=== PATIENT | female | born 1960 | race Caucasian/White ===

== ENCOUNTER 2020-03-19 10:48 | Outpatient (REF) | payer BC, SELFPAY ==
[2020-03-19 13:09] LABS: Free T4 (Free Thyroxine) 1.35 ng/dL (0.71-1.85); Thyroid Stimulating Hormone 0.07 mIU/mL (0.32-4.0)
[2020-03-31 12:40] LABS: MANUAL DIFF FLAG NO
[2020-03-31 12:45] LABS: Basophils Percent Auto 0.4 % (0-2); Eosinophils Absolute Auto 0.1 X10*3/uL (0.0-0.4); Eosinophils Percent Auto 1.5 % (0-4); Hematocrit 38.9 % (37-47); Hemoglobin 13.1 g/dl (12.0-16.0); Imm Gran Abs Auto 0.01 X10*3/uL (0.00-0.03); Imm Gran Pct Auto 0.2 % (0.0-0.4); Lymphocytes Absolute Auto 1.3 X10*3/uL (1.2-4.9); Lymphocytes Percent Auto 26.8 % (20-40); Mean Corpuscular HGB Conc 33.7 g/dl (31.0-35.0); Mean Corpuscular Hemoglobin 32.7 pg (27.0-33.0); Monocytes Absolute Auto 0.4 X10*3/uL (0.1-1.2); Monocytes Percent Auto 8.4 % (2-11); Neutrophils Percent Auto 62.7 % (45-73); Platelet Count 210 X10*3/uL (160-400); Red Blood Count 4.01 X10*6/uL (4.20-5.50); Red Cell Distribution Width 11.7 % (11.0-16.0); White Blood Count 4.8 X10*3/uL (4.8-10.8)
[2020-03-31 13:16] LABS: Alanine Aminotransferase 22 U/L (0-31); Albumin Level 4.7 g/dL (3.5-5.0); Alkaline Phosphatase 57 U/L (39-117); Anion Gap 10 (12-20); Aspartate Amino Transferase 22 U/L (5-31); Bilirubin Total 0.5 mg/dL (0.0-1.0); Blood Urea Nitrogen 18 mg/dL (9-16); C Reactive Protein 0.03 mg/dL (< or = 0.50); Calcium 9.7 mg/dL (8.4-10.2); Carbon Dioxide 31 mmol/L (22-29); Chloride 104 mmol/L (96-108); Estimated Glomerular Filt Rate > 60; Glucose Random 84 mg/dL (60-115); Potassium 4.8 mmol/l (3.3-5.1); Sodium 140 mmol/L (135-145); Total Protein 7.3 g/dL (6.5-8.0)
[2020-03-31 13:31] LABS: Thyroid Stimulating Hormone 0.05 mIU/mL (0.32-4.0)
[2020-03-31 13:48] LABS: Erythrocyte Sedimentation Rate 6 MM/HR (0-20)
[2020-04-05 20:27] LABS: Transglutaminase Ab IgG 5 U/mL; Transglutaminase IgA 1 U/mL
== END 2020-03-19 10:49 | disposition home or self-care (01) ==
LOC: HO.LAB 10:48
PROVIDERS: Internal Medicine Gastroenterology; PCP Internal Medicine; Visit Provider Internal Medicine
DX: E03.9 Hypothyroidism, unspecified (principal)
CPT/HCPCS: 36415; 80053; 83516; 84439; 84443; 85025; 85652; 86140

== ENCOUNTER 2020-03-31 17:12 | Outpatient (REF) | payer BC, SELFPAY ==
[2020-03-31 18:01] LABS: Leukocytes Stool Qualitative NEGATIVE (NEGATIVE)
[2020-04-01 10:12] LABS: CDIFF Ag Negative (Negative); CDIFF Internal ctrl Dots and bkg OK (V); CDiff Toxin Negative (Negative)
[2020-04-05 22:41] LABS: Fecal Fat Qualitative NORMAL (NORMAL)
[2020-04-07 00:06] LABS: Pancreatic Elastase-1 >500 mcg/g
[2020-04-07 20:26] LABS: Calprotectin, Fecal 63 mcg/g
== END 2020-03-31 17:13 | disposition home or self-care (01) ==
LOC: HO.LNP 17:12
PROVIDERS: Visit Provider Internal Medicine Gastroenterology
DX: R19.7 Diarrhea, unspecified (principal)
CPT/HCPCS: 82656; 82705; 83993; 87324; 87329; 87338; 87449; 89055

== ENCOUNTER 2020-10-20 13:51 | Outpatient (REF) | payer BC, SELFPAY ==
[2020-10-21 14:03] LABS: CT PCR NOT DETECTED (Not Detect.); NG PCR NOT DETECTED (Not Detect.)
[2020-10-22 12:23] LABS: BV Int Neg Control Negative (Negative); BV Int Pos Control Positive (Positive)
== END 2020-10-20 13:52 | disposition home or self-care (01) ==
LOC: HO.LAB 13:51
PROVIDERS: Visit Provider Nurse Practitioner Family
DX: Z11.3 Encounter for screening for infections with a predominantly sexual mode of transmission (principal); N89.8 Other specified noninflammatory disorders of vagina
CPT/HCPCS: 87086; 87480; 87491; 87510; 87591; 87660

== ENCOUNTER 2020-10-21 11:12 | Outpatient (REF) | payer BC, SELFPAY | END 2020-10-21 11:13 | disposition home or self-care (01) | LOC: HO.LNP 11:12 | PROVIDERS: Visit Provider Nurse Practitioner Family | DX: Z13.89 Encounter for screening for other disorder (principal) | CPT/HCPCS: 87086; 87480; 87491; 87510; 87591; 87660 ==

== ENCOUNTER 2020-12-21 09:10 | Outpatient (REF) | payer BC, SELFPAY ==
[2020-12-21 10:09] LABS: MANUAL DIFF FLAG NO
[2020-12-21 10:18] LABS: Basophils Percent Auto 0.4 % (0-2); Eosinophils Absolute Auto 0.1 X10*3/uL (0.0-0.4); Eosinophils Percent Auto 2.1 % (0-4); Hematocrit 42.7 % (37-47); Hemoglobin 14.4 g/dl (12.0-16.0); Imm Gran Abs Auto 0.01 X10*3/uL (0.00-0.03); Imm Gran Pct Auto 0.2 % (0.0-0.4); Lymphocytes Absolute Auto 1.5 X10*3/uL (1.2-4.9); Mean Corpuscular HGB Conc 33.7 g/dl (31.0-35.0); Mean Corpuscular Hemoglobin 32.1 pg (27.0-33.0); Mean Corpuscular Volume 95.1 fL (80-98); Mean Platelet Volume 11.2 fL (9.4-12.3); Monocytes Absolute Auto 0.5 X10*3/uL (0.1-1.2); Monocytes Percent Auto 8.9 % (2-11); Neutrophils Percent Auto 58.4 % (45-73); Platelet Count 255 X10*3/uL (160-400); Red Blood Count 4.49 X10*6/uL (4.20-5.50); White Blood Count 5.1 X10*3/uL (4.8-10.8)
[2020-12-21 10:40] LABS: Alanine Aminotransferase 48 U/L (0-31); Albumin Level 4.8 g/dL (3.5-5.0); Alkaline Phosphatase 77 U/L (39-117); Anion Gap 13 (12-20); Aspartate Amino Transferase 33 U/L (5-31); Bilirubin Total 0.5 mg/dL (0.0-1.0); Blood Urea Nitrogen 20 mg/dL (9-16); Calcium 10.4 mg/dL (8.4-10.2); Carbon Dioxide 30 mmol/L (22-29); Chloride 103 mmol/L (96-108); Cholesterol 211 mg/dL; Estimated Glomerular Filt Rate > 60; Glucose Fasting 87 mg/dL (60-99); HDL Cholesterol 80 mg/dL; LDL Cholesterol Calculated 107 mg/dl; Potassium 4.4 mmol/L (3.3-5.1); Sodium 142 mmol/L (135-145); Total Protein 7.6 g/dL (6.5-8.0); Triglycerides 121 mg/dL
[2020-12-21 11:02] LABS: Free T4 (Free Thyroxine) 1.26 ng/dL (0.71-1.85); Thyroid Stimulating Hormone < 0.01 uIU/mL (0.32-4.0); Vitamin D 25-OH Total 40.4 ng/mL (>30)
[2020-12-21 12:17] LABS: Glucose Urine UA NEG (NEG); Leukocyte Esterase Urine 2+ (NEG); Nitrite Urine NEG (NEG); UACC Culture Trigger YES; Urine Blood NEG (NEG); Urine Ketones NEG (NEG); Urine Protein NEG (NEG-TRACE)
[2020-12-21 12:19] LABS: Appearance Urine CLEAR; Color Urine YELLOW
[2020-12-21 13:12] LABS: Bacteria Urine TRACE /LPF; RBC Urine 0-2 /HPF (0); Squamous Epithelial Cell Urine TRACE /LPF
== END 2020-12-21 09:11 | disposition home or self-care (01) ==
LOC: HO.LAB 09:10
PROVIDERS: PCP Internal Medicine; Visit Provider Internal Medicine
DX: Z00.00 Encounter for general adult medical examination without abnormal findings (principal); E03.9 Hypothyroidism, unspecified; E78.5 Hyperlipidemia, unspecified; E55.9 Vitamin D deficiency, unspecified
CPT/HCPCS: 36415; 80053; 80061; 81001; 81003; 82306; 84439; 84443; 85025; 87086; 87147

== ENCOUNTER 2022-01-11 08:57 | Outpatient (REF) | payer BC, SELFPAY ==
[2022-01-11 09:18] LABS: MANUAL DIFF FLAG NO
[2022-01-11 09:50] LABS: Basophils Percent Auto 0.4 % (0-2); Eosinophils Absolute Auto 0.1 X10*3/uL (0.0-0.4); Eosinophils Percent Auto 1.3 % (0-4); Hematocrit 40.8 % (37.0-47.0); Hemoglobin 13.7 g/dl (12.0-16.0); Imm Gran Abs Auto 0.02 X10*3/uL (0.00-0.03); Imm Gran Pct Auto 0.4 % (0.0-0.4); Lymphocytes Absolute Auto 1.3 X10*3/uL (1.2-4.9); Mean Corpuscular HGB Conc 33.6 g/dl (31.0-35.0); Mean Corpuscular Hemoglobin 32.3 pg (27.0-33.0); Mean Corpuscular Volume 96.2 fL (80.0-98.0); Mean Platelet Volume 10.6 fL (9.4-12.3); Monocytes Absolute Auto 0.5 X10*3/uL (0.1-1.2); Monocytes Percent Auto 9.8 % (2-11); Neutrophils Absolute Auto 2.7 x10*3/uL (2.0-8.3); Neutrophils Percent Auto 60.1 % (45-73); Platelet Count 263 X10*3/uL (160-400); Red Blood Count 4.24 X10*6/uL (4.20-5.50); White Blood Count 4.6 X10*3/uL (4.8-10.8)
[2022-01-11 10:21] LABS: Alanine Aminotransferase 31 U/L (0-31); Albumin Level 4.7 g/dL (3.5-5.0); Alkaline Phosphatase 80 U/L (39-117); Anion Gap 12 (12-20); Aspartate Amino Transferase 22 U/L (5-31); Bilirubin Total 0.5 mg/dL (0.0-1.0); Blood Urea Nitrogen 20 mg/dL (9-16); Calcium 9.6 mg/dL (8.4-10.2); Carbon Dioxide 28 mmol/L (22-29); Chloride 105 mmol/L (96-108); Cholesterol 222 mg/dL; Estimated Glomerular Filt Rate > 60; Glucose Fasting 86 mg/dL (60-99); HDL Cholesterol 76 mg/dL; LDL Cholesterol Calculated 129 mg/dl; Potassium 4.9 mmol/L (3.3-5.1); Sodium 140 mmol/L (135-145); Total Protein 7.3 g/dL (6.5-8.0); Triglycerides 86 mg/dL
[2022-01-11 10:44] LABS: Free T4 (Free Thyroxine) 1.28 ng/dL (0.71-1.85); Thyroid Stimulating Hormone 0.05 uIU/mL (0.32-4.0); Vitamin D 25-OH Total 33.8 ng/mL (>30)
[2022-01-11 10:45] LABS: Appearance Urine CLEAR; Color Urine YELLOW; Glucose Urine UA NEG (NEG); Leukocyte Esterase Urine 1+ (NEG); Nitrite Urine NEG (NEG); UACC Culture Trigger YES; Urine Blood NEG (NEG); Urine Ketones NEG (NEG); Urine Protein NEG (NEG-TRACE)
[2022-01-11 11:01] LABS: RBC Urine 0 /HPF (0); Renal Epithelial Cells Urine 1+ /LPF
== END 2022-01-11 08:58 | disposition home or self-care (01) ==
LOC: HO.LAB 08:57
PROVIDERS: PCP Internal Medicine; Visit Provider Internal Medicine
DX: Z00.00 Encounter for general adult medical examination without abnormal findings (principal); E03.9 Hypothyroidism, unspecified; E55.9 Vitamin D deficiency, unspecified
CPT/HCPCS: 36415; 80053; 80061; 81001; 82306; 84439; 84443; 85025; 87086

== ENCOUNTER 2022-10-23 07:50 | Outpatient (REF) | payer BC, SELFPAY ==
[2022-10-23 08:10] LABS: MANUAL DIFF FLAG NO
[2022-10-23 08:42] LABS: Basophils Percent Auto 0.4 % (0-2); Eosinophils Absolute Auto 0.1 X10*3/uL (0.0-0.4); Eosinophils Percent Auto 2.6 % (0-4); Hematocrit 41.4 % (37.0-47.0); Imm Gran Abs Auto 0.01 X10*3/uL (0.00-0.03); Imm Gran Pct Auto 0.2 % (0.0-0.4); Lymphocytes Absolute Auto 1.1 X10*3/uL (1.2-4.9); Lymphocytes Percent Auto 20.9 % (20-40); Mean Corpuscular HGB Conc 33.8 g/dl (31.0-35.0); Mean Corpuscular Hemoglobin 32.3 pg (27.0-33.0); Mean Corpuscular Volume 95.6 fL (80.0-98.0); Mean Platelet Volume 10.5 fL (9.4-12.3); Monocytes Absolute Auto 0.6 X10*3/uL (0.1-1.2); Monocytes Percent Auto 10.8 % (2-11); Neutrophils Absolute Auto 3.3 x10*3/uL (2.0-8.3); Neutrophils Percent Auto 65.1 % (45-73); Platelet Count 249 X10*3/uL (160-400); Red Blood Count 4.33 X10*6/uL (4.20-5.50); Red Cell Distribution Width 11.9 % (11.0-16.0); White Blood Count 5.1 X10*3/uL (4.8-10.8)
[2022-10-23 09:08] LABS: Alanine Aminotransferase 35 U/L (0-31); Albumin Level 4.6 g/dL (3.5-5.0); Alkaline Phosphatase 70 U/L (39-117); Anion Gap 14 (12-20); Aspartate Amino Transferase 26 U/L (5-31); Bilirubin Total 0.6 mg/dL (0.0-1.0); Blood Urea Nitrogen 19 mg/dL (9-16); C Reactive Protein < 0.10 mg/dL (< or = 0.50); Calcium 9.9 mg/dL (8.4-10.2); Carbon Dioxide 28 mmol/L (22-29); Chloride 104 mmol/L (96-108); Cholesterol 214 mg/dL; Estimated Glomerular Filt Rate 59; Glucose Fasting 84 mg/dL (60-99); HDL Cholesterol 66 mg/dL; LDL Cholesterol Calculated 136 mg/dl; Potassium 4.5 mmol/L (3.3-5.1); Sodium 141 mmol/L (135-145); Total Protein 7.1 g/dL (6.5-8.0); Triglycerides 60 mg/dL
[2022-10-23 09:20] LABS: Erythrocyte Sedimentation Rate 5 MM/HR (0-20)
[2022-10-23 09:27] LABS: Free T4 (Free Thyroxine) 1.32 ng/dL (0.71-1.85); Thyroid Stimulating Hormone 0.02 uIU/mL (0.32-4.0); Vitamin D 25-OH Total 44.1 ng/mL (>30)
[2022-10-23 10:14] LABS: Appearance Urine Clear; Color Urine Yellow; Glucose Urine UA Negative (Negative); Leukocyte Esterase Urine Small (1+) (Negative); Nitrite Urine Negative (Negative); UMIC TRIGGER UACC YES; Urine Blood Negative (Negative); Urine Ketones Negative (Negative); Urine Protein Negative (Neg-Trace)
[2022-10-23 10:28] LABS: Bacteria Urine None Seen (None Seen); Hyaline Casts Urine 0-2 /LPF (0-2); RBC Urine 0-2 /HPF (0-2); Squamous Epithelial Cell Urine 0-2 /HPF (0-2); UACC Culture Trigger YES; WBC Urine 0-5 /HPF (0-5)
== END 2022-10-23 07:51 | disposition home or self-care (01) ==
LOC: HO.LAB 07:50
PROVIDERS: PCP Internal Medicine; Visit Provider Internal Medicine
DX: E03.9 Hypothyroidism, unspecified (principal); I34.1 Nonrheumatic mitral (valve) prolapse; M79.7 Fibromyalgia; R51.9 Headache, unspecified; E55.9 Vitamin D deficiency, unspecified; E78.5 Hyperlipidemia, unspecified; R82.90 Unspecified abnormal findings in urine
CPT/HCPCS: 36415; 80053; 80061; 81001; 81003; 82306; 84439; 84443; 85025; 85652; 86140; 87086

== ENCOUNTER 2022-10-27 07:48 | Outpatient (REF) | payer BC, SELFPAY ==
--- NOTE | ~2022-10-27 | CT_ITS ---
EXAMINATION: CT HEAD WITHOUT CONTRAST CLINICAL INFORMATION: Headache, unspecified. COMPARISON: None. TECHNIQUE: Contiguous axial imaging was performed from the skull base to vertex without intravenous administration of contrast. This CT examination was performed using dose optimization techniques as appropriate, variously including the following: *Automated exposure control *Adjustment of mA and/or kV according to patient size (this includes techniques or standardized protocols for targeted exams where dose is matched to indication/reason for exam; i.e. extremities or head) *Use of iterative reconstruction technique DLP: 739 mGy-cm. FINDINGS: There is no intracranial hemorrhage, large infarction, or mass lesion. There is no extra-axial collection. The ventricles are normal in size and configuration without evidence of hydrocephalus. The cerebellar tonsils are normally positioned above the foramen magnum. The visualized paranasal sinuses and mastoid air cells are clear. CT/CT head/brain wo IV con IMPRESSION: No acute intracranial abnormality.
== END 2022-10-27 07:49 | disposition home or self-care (01) ==
LOC: HO.CT 07:48
PROVIDERS: PCP Internal Medicine; Visit Provider Internal Medicine
DX: R51.9 Headache, unspecified (principal)
CPT/HCPCS: 70450

== ENCOUNTER → 2022-11-06 14:02 | Outpatient (REF) | payer BC, SELFPAY ==
--- NOTE | 2022-11-06 14:06 | CA_ITS ---
Transthoracic Echocardiogram Patient (Last, First, Middle): Bobbi Camara A Gender: Female Date of : 1960 Age: 62 Procedure Date: 11/06/2022 Procedure Type: Transthoracic Echocardiogram Location: OP Height: 162.56 cm Weight: 50.35 kg BSA: 1.52 m2 Heart Rate: 62 bpm BP: 115 / 70 mmHg Program Manager Rn: INES Referring MD: Michael Webster MD Symptoms: R06.09 - Other forms of dyspnea Study Quality: Fair; unable to lay on left side ECG Rhythm: Sinus Conclusions: - The left ventricular systolic function is normal. The calculated ejection fraction is 67% by biplane method. - No obvious valvular pathology seen on this study. Findings Left Ventricle Normal left ventricular cavity size. There is normal left ventricular wall thickness. The left ventricular systolic function is normal. The calculated ejection fraction is 67% by biplane method. There is no evidence of regional wall motion abnormalities. Diastolic function is normal for age. LV peak GLS -19.9%. Right Ventricle Normal right ventricular cavity size and systolic function. Atria Both atria are normal in size. Aortic Valve There is a normal trileaflet aortic valve. There is no aortic valve stenosis. There is no aortic valve regurgitation. Mitral Valve The mitral valve appears normal. There is trace mitral valve regurgitation. There is no mitral valve stenosis. Pulmonic Valve The pulmonic valve is likely normal. Tricuspid Valve Normal tricuspid valve structure. There is trace tricuspid valve regurgitation. There is no evidence of pulmonary hypertension. Great Vessels The aortic annulus and sinuses of valsalva are normal in size. Venous The inferior vena cava is mildly dilated and collapses greater than 50% with inspiration. Pericardium/Pleural There is no evidence of pericardial effusion. Prior Study Comparison Changes noted compared to prior study dated: 02/22/2018. No clear evidence of mitral valve prolapse. Recommendations, Care & Conclusions No obvious valvular pathology seen on this study. Measurements 2D Linear Measurements IVSd: 0.71 0.6-0.9/0.6-1.0 cm LVIDd: 3.75 3.9-5.3/4.2-5.9 cm LVIDd Index: 2.47 2.4-3.2/2.2-3.1 cm/m2 LVIDs: 2.62 2.0-3.6 cm LVPWd: 0.96 0.7-1.1 cm LA Diam: 1.90 2.7-3.8/3.0-4.0 cm LAIDs Index: 1.25 1.5-2.3 cm/m2 LV Mass: 110.38 67-162/88-224 g LV Mass Index: 72.62 43-95/49-115 g/m2 LVOT Diam: 1.90 3.0+(-)1.3 cm 2D Systolic Function EF 4C: 64.10 >55% EF 2C: 69.20 >55% EF BiP: 66.60 >55% Mitral Valve MV Pk E: 0.77 MV PK A: 0.50 MV Decel Time: 154.00 E/A: 1.50 E'Lateral: 10.40 E'Medial: 7.51 E/E' Med: 10.30 E/E' Lat: 7.40 PHT: 45.00 MVA PHT: 4.89 Decel [place]: 5.01 Aortic Valve AoV Pk Jay: 1.19 AoV Mn Jay: 0.86 AoV VTI: 0.26 AoV Pk Grad: 6.00 Aov Mn Grad: 3.00 ALVIN Cont.VTI: 2.19 LVOT LVOT Pk Jay: 0.92 LVOT Mn Jay: 0.63 LVOT VTI: 0.20 LVOT Pk Grad: 3.00 LVOT Mn Grad: 2.00 LVOT Diam: 1.90 LVOT Area: 2.84 Diastolic Function MV Pk E: 0.77 MV Pk A: 0.50 E/A: 1.50 E'Medial: 7.51 E/E' Med: 10.30 E' Laterial: 10.40 E/E' Lat: 7.40 Right Ventricle TAPSE (mm): 21.00 TVS' Jay: 10.40 Tricuspid Valve TR Pk Jay: 2.09 TR Pk Grad: 17.00 RA Press: 8.00 RVSP: 25.00 Great Vessels Aorta Sinus of Valsalva: 3.19 2.0-3.[address] [place]: 2.54 1.7-3.4 cm Updated in Other Vendor System with Status of Final Beau Warner MD electronically signed on 11/08/2022 10:43:28 AM with status of Final
== END ==
LOC: HO.CARD 14:02
PROVIDERS: PCP Internal Medicine; Referring Provider Internal Medicine Cardiovascular Disease; Visit Provider Internal Medicine
DX: R06.09 Other forms of dyspnea (principal); I34.1 Nonrheumatic mitral (valve) prolapse
CPT/HCPCS: 93306; 93356

== ENCOUNTER 2022-12-11 16:08 | Outpatient (REF) | payer BC, SELFPAY ==
[2022-12-11 17:15] LABS: Appearance Urine Clear; Color Urine Yellow; Glucose Urine UA Negative (Negative); Leukocyte Esterase Urine Trace (Negative); Nitrite Urine Negative (Negative); PH 5.5 (5.0-9.0); UMIC TRIGGER UACC YES; Urine Blood Negative (Negative); Urine Ketones Negative (Negative); Urine Protein Negative (Neg-Trace)
[2022-12-11 17:21] LABS: Bacteria Urine None Seen (None Seen); Hyaline Casts Urine 0-2 /LPF (0-2); RBC Urine 0-2 /HPF (0-2); WBC Urine 0-5 /HPF (0-5)
[2022-12-13 09:43] LABS: Follicle Stimulating Hormone 130.2 mIU/mL; Lutenizing Hormone 50.9 mIU/mL
[2022-12-17 14:48] LABS: Testosterone, Total 16 ng/dL (2-45)
[2022-12-18 01:29] LABS: Estrogen 75.1 pg/mL
[2022-12-20 19:28] LABS: Progesterone <0.1 ng/mL
== END 2022-12-11 16:09 | disposition home or self-care (01) ==
LOC: HO.LAB 16:08
PROVIDERS: PCP Internal Medicine; Visit Provider Internal Medicine
DX: F39 Unspecified mood [affective] disorder (principal); R53.83 Other fatigue; Z78.0 Asymptomatic menopausal state; R39.9 Unspecified symptoms and signs involving the genitourinary system
CPT/HCPCS: 36415; 81001; 82672; 83001; 83002; 84144; 84403

== ENCOUNTER 2022-12-14 17:47 | Outpatient (REF) | payer BC, SELFPAY ==
[2022-12-14 18:35] LABS: Leukocytes Stool Qualitative NEGATIVE (NEGATIVE)
[2022-12-15 03:03] LABS: CDiff Gene PCR NEGATIVE (Negative)
== END 2022-12-14 17:48 | disposition home or self-care (01) ==
LOC: HO.LNP 17:47
PROVIDERS: Visit Provider Internal Medicine
DX: R19.7 Diarrhea, unspecified (principal)
CPT/HCPCS: 87177; 87209; 87338; 87493; 89055

== ENCOUNTER 2023-01-09 14:55 | Outpatient (AMB) | payer BC, SELFPAY ==
[2023-01-09 15:02] VITALS: BP 110/80; PULSE 78; O2SAT 98; BMI 18.0
--- NOTE | 2023-01-09 15:02 | MHC.PC.OV ---
Vital Signs 01/09/23 15:02 Height 5 ft 4 in Weight 105 lb BMI 18.0 BP 110/80 Blood Pressure Location Lt brachial Position Sitting Pulse 78 Pulse Source Pulse Oximeter Pulse Oximetry (%) 98 Oxygen Delivery Method Room Air Intake Visit Reasons: annual exam Legal Services Professional Required: No Accompanied by: Self / Same As Patient Allergies albuterol Allergy (Unknown, Verified 01/30/23 09:12) Nighttime wakefulness penicillin V Allergy (Unknown, Verified 01/30/23 09:12) Hives Sulfa (Sulfonamide Antibiotics) Allergy (Unknown, Verified 01/30/23 09:12) Hives Medication List - Last Reconciled 01/30/23 by Mihcael Webster MD atenolol 37.5 mg PO DAILY black cohosh 540 mg PO DAILY bupropion HCl 300 mg PO QAM 30 days hydroxyzine HCl 25 mg PO TID PRN 30 days [Isoflavins 750 mg PO DAILY] levothyroxine 100 mcg PO DAILY lorazepam 0.5 mg PO BID PRN mv,Ca,nec-XY-ykludh no.157 400 mcg 1 tab PO DAILY rhubarb root extract 4 mg PO DAILY Tobacco use date assessed: 01/09/23 Dental Screening Dental Screen Date: 01/09/23 Did you have a dental visit in the last 12 months?: Yes Did you have a dental problem in the last 6 months where you did not have access to dental care?: No Was dental information given to patient?: Patient has dentist HPI annual exam HPI Details Patient comes in today for her annual physical examination States that she is currently still working on her marriage and that both she and her are going to counseling Is still experiencing anxiety symptoms as a result of her family issues Relates that she has lost a lot of weight over the past few months and she also continues to pass out loose stools frequently, about 3 to 4 times a day Also notes that her libido has increased significantly lately and is wondering what could be causing this and that is why she requested some labs to have her hormone levels checked a month or two ago She denies any headaches or dizziness Denies any chest pains, no SOB No nausea/vomiting, no abdominal pain or unusual cramping that are related to her recent loose stools and frequent bowel movements Has not noticed any blood or mucus in her stool lately and denies any recent travel other than her family vacation trip to [place] this past spring Denies any acute urinary symptoms Had her labs done a couple of months ago - would like to know how all of her other tests came out [facility] Medical History Acquired hypothyroidism Anxiety Dyslipidemia Menopause Mitral valve prolapse Vitamin D deficiency Vitiligo Surgical History H/O knee surgery History of colonoscopy (~02/26/19) Family History Mother Osteoporosis High blood pressure Father Heart problem Depression Other Mental health problem Substance abuse Social History Housing: House Alcohol intake: current Alcohol intake frequency: a few times a month Patient Tobacco Use Status: Former Tobacco user Tobacco use type: Cigarette e-Cigarette/Vaping Use: Never Used Second Hand Smoke Exposure: Yes service: No Current occupational status: employed 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 1. Little interest or pleasure in doing things: several days 2. Feeling down, depressed, or hopeless: not at all 3. Trouble falling or staying asleep, or sleeping too much: several days 4. Feeling tired or having little energy: not at all 5. Poor appetite or overeating: several days 6. Feeling bad about yourself - or that you are a failure or have let yourself or your family down: several days 7. Trouble concentrating on things, such as reading the newspaper or watching television: several days 8. Moving or speaking so slowly that other people could have noticed. Or the opposite - being so fidgety or restless that you have been moving around a lot more than usual: several days 9. Thoughts that you would be better off or of hurting yourself in some way: more than half the days (More so that is scratches herself ) Total score: 8 Depression Screening Interpretation: Positive Depression Screening Follow-up: Existing condition and In treatment 57889 - PHQ-9 Billing: Yes Source: Developed by Drs. Aaron Wiseman, Marisel Anderson, Jose Manuel Rodríguez and colleagues, with an educational ting from [employer]. Thrive Questionnaire Date Thrive assessed: 01/09/23 I am a: Patient What is your living situation today?: I have a steady place to live Within the past 12 months, did the food you bought not last and you didn't have the money to get more?: Never true Within the past 12 months, did you worry whether your food would run out before you got money to buy more?: Never true Do you have trouble paying for medicines?: No Do you have trouble getting transportation to medical appointments?: No Do you have trouble paying your heating and electricity bill?: No Do you have trouble taking care of your child, family member or friend?: No Do you have trouble with day-to-day activities such as bathing, preparing meals, shopping, managing finances, etc.?: No Are you currently unemployed and looking for a job?: No Are you interested in more education?: No Please select the resources that you would like help with: None Currently or been in a relationship where the following occur: no concerns reported AUDIT C Alcohol Use Questionnaire (AUDIT-C) 1. How often do you have a drink containing alcohol?: Monthly or less 2. How many drinks containing alcohol do you have on a typical day when you are drinking?: 1 or 2 3. How often do you have six or more drinks on one occasion?: Never Total Score: 1 Score Reviewed/Action Taken: Yes RON-7 AMB Questionnaire RON-7 Date RON - 7 assessed: 01/09/23 Feeling nervous, anxious, or on edge: 3 = Nearly every day Not being able to stop or control worryin = More than half the days Worrying too much about different things: 2 = More than half the days Trouble relaxin = More than half the days Being so restless that it is hard to sit still: 0 = Not at all Becoming easily annoyed or irritable: 1 = Several days Feeling afraid as if something awful might happen: 2 = More than half the days Total RON-7 score (0-4 normal; 5-9 mild; 10-14 moderate; 15-21 severe): 12 Source: Developed by Marisel [employer]. Justin, Jose Manuel Rodríguez and colleagues, with an educational ting from [employer]. Review of Systems Const Denies chills, Reports difficulty sleeping (at times), Reports fatigue, Denies fever(s), Denies headache(s), Denies malaise and Reports weight loss Eyes Denies blurry vision, Denies change in vision, Denies irritation and Denies itchy eyes ENT Denies dysphagia, Denies dizziness, Denies otalgia, Denies headache(s), Denies neck pain, Denies odynophagia and Denies sore throat Card Denies chest pain, Denies rapid heart rate, Denies irregular heart rhythm, Denies palpitations and Denies dyspnea Resp Denies chest congestion, Denies cough, Denies dyspnea and Denies wheezing GI Denies abdominal pain, Denies bloating, Denies hematochezia, Denies constipation, Denies dysphagia, Denies heartburn, Reports loose stools (frequent), Denies nausea, Denies odynophagia and Denies vomiting Denies hematuria, Reports change in libido (increased lately), Denies urinary frequency, Denies dysuria, Denies urinary incontinence and Denies urinary urgency Musc Denies back pain, Denies arthralgias, Denies joint swelling, Denies muscle weakness and Denies neck pain Skin/Breast Denies breast pain, Denies breast mass, Denies change in pigmentation, Denies lesions, Denies rash and Denies unusual bruising Neuro Denies dizziness, Denies headache(s) and Denies paresthesias Psych Denies anxiety, Reports change in libido (increased lately) and Denies depression Endo Reports change in libido (increased lately), Reports fatigue and Denies palpitations Usama/Lymph Denies easy bruising Aller/Immun Denies itchy eyes and Denies wheezing Physical exam (Primary Care) Vital Signs: Last Vital Signs Pulse 78 01/09/23 15:02 BP 110/80 01/09/23 15:02 Pulse Ox 98 01/09/23 15:02 Oxygen Delivery Method Room Air 01/09/23 15:02 BMI result Body Mass Index 18.0 Tobacco/Smoking Status: Tobacco use Status Tobacco use date assessed 01/09/23 01/09/23 15:11 Patient Tobacco Use Status Former Tobacco user 01/09/23 15:11 Tobacco use type Cigarette 01/09/23 15:11 e-Cigarette/Vaping Use Never Used 01/09/23 15:11 PHQ-9: PHQ-9 Score PHQ-9: Total score 8 01/09/23 16:01 Depression Screening Interpretation: Positive Depression Screening Follow-up: Existing condition and In treatment Thrive Assessment: Date of Thrive Assessment Date Thrive assessed 01/09/23 01/09/23 15:11 Currently or been in a relationship where the following occur: no concerns reported Const General: no acute distress, alert and awake Orientation/consciousness: patient oriented x3 HENMT Head: Yes normocephalic and Yes atraumatic Ears: external ears normal, TM's normal bilaterally and EAC's normal General nose exam: No nasal discharge present Face and sinus: Yes normal facial exam and Yes sinuses nontender Teeth and gingiva: dentition normal Throat: Yes posterior oropharynx normal and Yes tonsils normal (no TP congestion) Eyes Eyelids: Yes eyelids normal Conjunctivae: conjunctivae normal Pupils: Equal, round and reactive pupils present EOM: EOMs intact bilaterally Neck Neck: Yes no lymphadenopathy and Yes supple Thyroid: Thyroid normal Resp Auscultation: clear to auscultation bilaterally, no rales and no wheezes Cardio Rate: regular rate Rhythm: regular rhythm Heart sounds: no murmurs GI Palpation (GI): Soft to palpation, nontender and No hepatosplenomegaly present Auscultation: normal bowel sounds General: Yes no CVA tenderness Back/Spine/Pelvis Back: no CVA tenderness Thoracic/Lumbar Spine: thoracic and lumbar spine normal to inspection Skin Lesions: no lesions Rashes: no rashes Neuro General: patient oriented x3, moves all extremities, no focal motor deficits and CN's II-XI intact bilaterally Cranial nerves: Yes Equal, round and reactive pupils present Cognition (Neuro): normal cognition Gait exam (Neuro): Normal gait present Extrem General: Yes no clubbing, cyanosis or edema Results Reviewed Results Reviewed: Laboratory Tests 10/23/22 10/23/22 10/23/22 08:09 08:09 08:09 WBC 5.1 Hgb 14.0 Hct 41.4 Plt Count 249 ESR 5 Sodium 141 Potassium 4.5 Creatinine 0.97 Estimated GFR 59 Fasting Glucose 84 Calcium 9.9 AST 26 ALT 35 H Triglycerides 60 Cholesterol 214 LDL Cholesterol, Calc 136 HDL Cholesterol 66 25-OH Vitamin D Total 44.1 TSH 0.02 L Free T4 1.32 Estrogen FSH Luteinizing Hormone Progesterone Total Testosterone Urine pH Ur Specific [place] Urine Protein Urine Glucose (UA) Urine Blood 12/11/22 12/11/22 16:11 16:22 WBC Hgb Hct Plt Count ESR Sodium Potassium Creatinine Estimated GFR Fasting Glucose Calcium AST ALT Triglycerides Cholesterol LDL Cholesterol, Calc HDL Cholesterol 25-OH Vitamin D Total TSH Free T4 Estrogen 75.1 FSH 130.2 H Luteinizing Hormone 50.9 Progesterone <0.1 Total Testosterone 16 Urine pH 5.5 Ur Specific [place] 1.010 Urine Protein Negative Urine Glucose (UA) Negative Urine Blood Negative Assessment and Plan Assessment & Plan (1) Annual physical exam: Code(s): Z00.00 - Encounter for general adult medical examination without abnormal findings Plan: Results of her labs done a couple of months ago reviewed and discussed with patient She is up-to-date with her screening colonoscopy - last done in 2018 and is due for repeat in 2028 She is also reportedly up-to-date with 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 (2) Frequent loose stools: Code(s): R19.7 - Diarrhea, unspecified Qualifiers: Diarrhea type: unspecified type Qualified Code(s): R19.7 - Diarrhea, unspecified Plan: Ongoing x few months now Work ups done have been negative so far Is presumed to be due to her significant stress and anxiety lately and can continue symptomatic Tx with OTC meds for now Will also refer her to GI for further evaluation and management (3) Mitral valve prolapse: Comment: Repeat echocardiogram done on 02/22/2018 showed (+) mild prolapse of the posterior leaflet with mild regurgitation, normal LV systolic and diastolic function, normal right ventricular systolic pressure, and normal pericardial structure (previous echocardiogram was done in 2013) - recommend repeat echocardiogram in 1 to 2 years Code(s): I34.1 - Nonrheumatic mitral (valve) prolapse Plan: Previous echocardiogram findings in 2018 noted as above; she also appear to have mild MR and trace TR on her echo done in 2017 Patient also had a stress echocardiogram done on 04/03/2018 that was a negative stress echo for chest pain with no ECG evidence of ischemia and no echocardiographic evidence for myocardial ischemia. She had a brief episode of atrial fibrillation in recovery. Repeat echocardiogram done in October 2022 came out normal - the left ventricular systolic function is normal and?the calculated ejection fraction is 67% by biplane method. There is also mild MR but no other obvious valvular pathology is seen on this study. (4) Acquired hypothyroidism: Code(s): E03.9 - Hypothyroidism, unspecified Plan: Continue Levothyroxine 100 mcg QD Her TFTs done in October 2022 is still showing suppressed TSH level but her free T4 is normal As she has lost a lot of weight over the past few months, will probably need to recheck her TFTs in a couple of months for follow up (5) Anxiety: Code(s): F41.9 - Anxiety disorder, unspecified Plan: Patient is currently going through a rough stretch in her marriage and is currently still in counseling together with her - is encouraged to continue Continue Bupropion XL 300 mg QD and Hydroxyzine 25 mg TID PRN; she was also provided with some Lorazepam 0.5 mg Rx to take BID PRN (6) Breast cancer screening by mammogram: Code(s): Z12.31 - Encounter for screening mammogram for malignant neoplasm of breast Plan: Will send her for her annual mammogram (7) Osteoporosis screening: Code(s): Z13.820 - Encounter for screening for osteoporosis Plan: Will also send her for BMD for osteoporosis screening Plan Follow up in 6 months or PRN; sooner as needed - patient to call for appt Orders: Orders XR DEXA axial skeleton 01/09/23 Z78.0 - Asymptomatic menopausal state MM screening mammo BI 01/09/23 Z12.31 - Encounter for screening mammogram for malignant neoplasm of breast Referrals Gastroenterology Referral R19.7 - Diarrhea, unspecified, R63.4 - Abnormal weight loss Coding Level of Care Code Est Pt Prev Care 40-64y(16793) Diagnoses Annual physical exam Z00.00 Frequent loose stools R19.7 Diarrhea type: unspecified type Mitral valve prolapse I34.1 Acquired hypothyroidism E03.9 Anxiety F41.9 Breast cancer screening by mammogram Z. Osteoporosis screening Z13.820
== END 2023-01-09 16:29 | disposition home or self-care (01) ==
PROVIDERS: PCP Internal Medicine; Visit Provider Internal Medicine
DX: Z00.00 Encounter for general adult medical examination without abnormal findings (principal); E03.9 Hypothyroidism, unspecified; F41.9 Anxiety disorder, unspecified; R19.7 Diarrhea, unspecified; I34.1 Nonrheumatic mitral (valve) prolapse
CPT/HCPCS: 99396

== ENCOUNTER 2023-01-19 14:29 | Outpatient (REF) | payer BC, SELFPAY ==
--- NOTE | ~2023-01-19 | MM_ITS ---
EXAMINATION: BONE DENSITOMETRY CLINICAL INDICATION: Menopause. COMPARISON: This is the patient's baseline examination. TECHNIQUE: Using a Abril DXA System (software version: 13.1) manufactured by [employer], dual-energy x-ray absorptiometry was performed of the lumbar spine and left hip. The images are of good technical quality. Summary results are attached. FINDINGS: LEFT FEMUR, NECK: BMD 0.999 g/cm2, Z-score 1.4, T-score -0.3, normal. LEFT FEMUR, TOTAL: BMD 1.069 g/cm2, Z-score 1.9, T-score 0.5, normal. AP SPINE L1-L4: BMD 1.223 g/cm2, Z-score 2.2, T-score 0.4, normal. IDENTIFIED RISK FACTORS: Menopause. HISTORY OF FRACTURE: None listed. MEDICATIONS: Multivitamin. MM/XR DEXA axial skeleton IMPRESSION: 1. DIAGNOSIS: Normal bone density based on the lowest T-score value of -0.3 in the femoral neck applying World Health Organization criteria. 2. 10-YEAR FRACTURE RISK PREDICTION, FRAX: According to the guidelines, FRAX calculation should only be performed on patients in the osteopenia bone density category. Therefore, FRAX was not performed on this patient. 3. Treatment Recommendations: NOF guidelines recommend consideration for treatment in postmenopausal women and men age 50 and older presenting with the following: -A hip or vertebral (clinical or morphometric) fracture. -T-score less than or equal to -2.5 at the femoral neck or spine after appropriate evaluation to exclude secondary causes. -Low bone mass at the hip or spine and a 10-year fracture probability by FRAX of greater than or equal to 3% for hip fracture or greater than or equal to 20% for major osteoporotic fracture based on the [place] adapted WHO algorithm. 4. Other Recommendations: All treatment decisions require clinical judgment and consideration of individual patient factors, including patient preferences, comorbidities, previous drug use, risk factors not captured in the FRAX model (e.g. frailty, falls, vitamin D deficiency, increased bone turnover, interval significant decline in bone density) and possible under or overestimation of fracture risk by FRAX. FUTURE SCAN RECOMMENDATION: People with diagnosed cases of osteoporosis or at high risk for fracture should have regular bone mineral density tests. For patients eligible for Medicare, routine testing is allowed once every 2 years. The testing frequency can be increased to one year for patients who have rapidly progressing disease, those who are receiving or discontinuing medical therapy to restore bone mass, or have additional risk factors.
== END 2023-01-19 14:30 | disposition home or self-care (01) ==
LOC: HO.MAMMO 14:29
PROVIDERS: Visit Provider Internal Medicine
DX: Z13.820 Encounter for screening for osteoporosis (principal); Z78.0 Asymptomatic menopausal state
CPT/HCPCS: 77080

== ENCOUNTER → 2023-01-19 14:30 | Outpatient (BNV) | payer BC, SELFPAY | PROVIDERS: Visit Provider Radiology Diagnostic Radiology | DX: Z78.0 Asymptomatic menopausal state (principal) | CPT/HCPCS: 77080 ==

== ENCOUNTER 2023-01-29 15:36 | Outpatient (AMB) | payer BC, SELFPAY ==
[2023-01-29 15:46] VITALS: BP 98/55; PULSE 74; BMI 17.9
--- NOTE | 2023-01-29 15:46 | A.OFFVIS_ITS ---
Intake Vital Signs 01/29/23 15:46 Height 5 ft 4 in Weight 104 lb 7.986 oz BMI 17.9 BP 98/55 L Blood Pressure Location Rt brachial Position Sitting Pulse 74 Intake Visit Reasons: Chronic diarrhea/ weight loss Intake Note: Patient presents to in office visit today as a new patient for chornic diarrhea and weight loss. CC: Patient reports diarrhea since June and poor appetite. She also reports weight loss about 20 gains. Offset Printer Required: No Allergies albuterol Allergy (Unknown, Verified 01/30/23 09:12) Nighttime wakefulness penicillin V Allergy (Unknown, Verified 01/30/23 09:12) Hives Sulfa (Sulfonamide Antibiotics) Allergy (Unknown, Verified 01/30/23 09:12) Hives HPI HPI Comments History of Present Illness Details 63 y.o F with PMH of ??hypothyroidism, MV prolapse, who has been having changes in bowel habits and unintentional weight loss. Pt reports struggling with marital issues at home since Jun which is when she started noticing soft stools, early satiety and weight loss of 20 lbs. Has been having up to 3 BMs per day. No night time sx. No urgency or tenesmus. No blood in stool. No fam hx of colon ca or IBD in first degree relatives. Has hx of hypothyroidism however TSH noted to be exceedingly low x 1 year. Pt remains on levothyroxine 100mcg daily. In terms of remaining labs: ESR and CRP normal. LFTs fine. Stool studies normal. FBS normal. Celiac serology neg 2019. [place] Feb 2019 (Dr Martin): Normal. [facility] Medical History Acquired hypothyroidism Anxiety Dyslipidemia Menopause Mitral valve prolapse Vitamin D deficiency Vitiligo Surgical History H/O knee surgery History of colonoscopy (~02/26/19) Family History Mother Osteoporosis High blood pressure Father Heart problem Depression Other Mental health problem Substance abuse Social History Housing: House Alcohol intake: current Alcohol intake frequency: a few times a month Patient Tobacco Use Status: Former Tobacco user Tobacco use type: Cigarette e-Cigarette/Vaping Use: Never Used Second Hand Smoke Exposure: Yes service: No Current occupational status: employed 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 Cognitive needs: No Hearing needs: No Vision needs: Yes Review of Systems Const All systems reviewed & are unremarkable except as noted in HPI and below Physical Exam Vital Signs: Last Vital Signs Pulse 74 01/29/23 15:46 BP 98/55 L 01/29/23 15:46 BMI result Body Mass Index 17.9 Assessment & Plan Assessment & Plan (1) Weight loss, non-intentional: Code(s): R63.4 - Abnormal weight loss (2) Frequent loose stools: Code(s): R19.7 - Diarrhea, unspecified Qualifiers: Diarrhea type: unspecified type Qualified Code(s): R19.7 - Diarrhea, unspecified (3) Low TSH level: Code(s): R79.89 - Other specified abnormal findings of blood chemistry (4) Anxiety: Code(s): F41.9 - Anxiety disorder, unspecified Plan Reviewed with the pt that most consistent with IBS related diarrhea. However weight loss is alarming. While this can be attributed to anorexia and loss of appetite due to ongoing anxiety, will obtain a contrasted CT Abd/pel to r/o any abnormality. Fecal calpro ordered as well. Depending on results can review indication of repeat endoscopic work up. She was also advised to discuss ongoing levothyroxine use with her PCP as her TSH has been profoundly low and excess levothyroxine may also be exacerbating her sx including diarrhea and weight loss. Follow up in 4 weeks. Orders: Orders Calprotectin, Fecal 01/29/23 R19.7 - Diarrhea, unspecified CT abdomen pelvis w IV con 01/29/23 R19.7 - Diarrhea, unspecified, R63.4 - Abnormal weight loss Coding Level of Care Code New Pt Level 4 (90264) Diagnoses Weight loss, non-intentional R63.4 Frequent loose stools R19.7 Diarrhea type: unspecified type Low TSH level R79.89 Anxiety F41.9
== END 2023-01-29 16:54 | disposition home or self-care (01) ==
PROVIDERS: PCP Internal Medicine; Visit Provider Internal Medicine
DX: R63.4 Abnormal weight loss (principal); R19.7 Diarrhea, unspecified; R79.89 Other specified abnormal findings of blood chemistry; F41.9 Anxiety disorder, unspecified
CPT/HCPCS: 99204

== ENCOUNTER → 2023-01-29 15:36 | Outpatient (BNVA) | payer BC, SELFPAY | PROVIDERS: PCP Internal Medicine; Visit Provider Internal Medicine ==

== ENCOUNTER 2023-01-31 10:38 | Outpatient (REF) | payer BC, SELFPAY ==
[2023-01-31 13:05] LABS: Free T4 (Free Thyroxine) 1.63 ng/dL (0.71-1.85); Thyroid Stimulating Hormone 0.01 uIU/mL (0.32-4.0)
[2023-02-01 06:54] LABS: Triiodothyronine T3 Total 100 ng/dL (76-181)
[2023-02-01 09:33] LABS: Thyroglobulin 0.1 ng/mL; Thyroglobulin Antibodies 1 IU/mL (< or = 1)
[2023-02-07 00:04] LABS: Calprotectin, Fecal 103 mcg/g
== END 2023-01-31 10:39 | disposition home or self-care (01) ==
LOC: HO.LAB 10:38
PROVIDERS: Absent Provider Internal Medicine; PCP Internal Medicine; Visit Provider Internal Medicine
DX: R79.89 Other specified abnormal findings of blood chemistry (principal); E03.9 Hypothyroidism, unspecified; R19.7 Diarrhea, unspecified
CPT/HCPCS: 36415; 83993; 84432; 84439; 84443; 84480; 86800

== ENCOUNTER 2023-02-26 12:20 | Outpatient (REF) | payer BC, SELFPAY ==
[2023-02-26 14:37] LABS: Anion Gap 11 (12-20); Blood Urea Nitrogen 14 mg/dL (9-16); Calcium 10.3 mg/dL (8.4-10.2); Carbon Dioxide 28 mmol/L (22-29); Chloride 105 mmol/L (96-108); Estimated Glomerular Filt Rate > 60; Glucose Random 81 mg/dL (60-115); Potassium 4.2 mmol/L (3.3-5.1); Sodium 140 mmol/L (135-145)
== END 2023-02-26 12:21 | disposition home or self-care (01) ==
LOC: HO.LAB 12:20
PROVIDERS: PCP Internal Medicine; Visit Provider Internal Medicine
DX: R63.4 Abnormal weight loss (principal)
CPT/HCPCS: 36415; 80048

== ENCOUNTER 2023-02-27 13:59 | Outpatient (REF) | payer BC, SELFPAY ==
--- NOTE | ~2023-02-27 | CT_ITS ---
EXAMINATION: CT ABDOMEN AND PELVIS WITH CONTRAST CLINICAL INFORMATION: Abnormal weight loss. COMPARISON: None available. TECHNIQUE: Multidetector volumetric images were obtained from the superior aspect of the liver through the pubic symphysis following administration 85 mL of Omnipaque 350 intravenous contrast. Sagittal and coronal reformatted images were obtained on the technologist's workstation. Oral contrast was administered. This CT examination was performed using dose optimization techniques as appropriate, variously including the following: *Automated exposure control *Adjustment of mA and/or kV according to patient size (this includes techniques or standardized protocols for targeted exams where dose is matched to indication/reason for exam; i.e. extremities or head) *Use of iterative reconstruction technique DLP: 231 mGy-cm FINDINGS: LUNG BASES: Normal. No pulmonary consolidation or pleural effusion. LIVER: The liver has normal size, shape, and attenuation. No evidence of liver mass. GALLBLADDER AND BILIARY TREE: Gallbladder is without radiopaque stones, wall thickening or pericholecystic fluid. No dilated bile ducts. PANCREAS: Normal. No edema, pancreatic ductal dilatation or mass. SPLEEN: Normal size. A few calcified granulomas are present in the spleen. ADRENAL GLANDS: Normal. KIDNEYS AND URETERS: The kidneys have normal size and cortical thickness. No perinephric edema or renal mass. No urolithiasis or hydroureteronephrosis. BLADDER: Normal. No calculi or wall thickening. BOWEL AND PERITONEUM: Stomach is unremarkable. No dilated loops of bowel. The retrocecal appendix is normal. No overt bowel wall thickening or mesenteric fat stranding. No free fluid or pneumoperitoneum. ABDOMINAL WALL: Unremarkable. VASCULATURE: Normal. LYMPH NODES: No pathologic sized lymph nodes in the abdomen or pelvis. No inguinal lymphadenopathy. PELVIC VISCERA: Mildly atrophied uterus. 4.2 x 2.8 x 4 cm structure anterior to the uterus projecting toward the right of midline is not a simple cyst; it has density in the range of 50-55 Hounsfield units. It is not clearly separable from the uterus. Therefore, it might represent a subserosal leiomyoma rather than an adnexal mass. It exerts mild mass effect upon the posterior wall of the urinary bladder. No pelvic free fluid. MUSCULOSKELETAL: Unremarkable. CT/CT abdomen pelvis w IV con IMPRESSION: * No evidence of pancreatic mass, abdominal lymphadenopathy or free fluid. * Within the pelvis, a 4.2 x 2.8 x 4 cm structure projecting anterior to the uterus and toward the right of midline is not a simple cyst and is not clearly separable from the uterus. It might represent a subserosal leiomyoma rather than an adnexal mass. Pelvic ultrasound follow-up recommended for further characterization.
[2023-02-27] MEDS: Barium Sulfate Oral (Berry) 450 ML ORAL.SUSP 900 ML PO (16:09)
[2023-02-27] MEDS: iohexoL 350 MG/ML 100 ML INFUS..BTL IV (16:10)
== END 2023-02-27 14:00 | disposition home or self-care (01) ==
LOC: HO.CT 13:59
PROVIDERS: PCP Internal Medicine; Visit Provider Internal Medicine
DX: R63.4 Abnormal weight loss (principal); R19.7 Diarrhea, unspecified
CPT/HCPCS: 74177; Q9967

== ENCOUNTER 2023-03-12 10:36 | Outpatient (AMB) | payer BC, SELFPAY ==
--- OUTSIDE RECORDS SUMMARY | 2023-03-12 10:37 | XMS_ITS | Continuity of Care Document ---
Author Name Unknown Organization [facility] [place] Address [address] [place] [address]- Care Team Providers Care Bobtailer Name Role Phone Michael Webster MD Primary Care Physician Encounter [facility] Date(s): 12/11/22 - 01/10/23 [facility] [place] [address] [place], [place] [address] Allergies, Adverse Reactions, Alerts Substance Reaction Severity Status penicillins Active Medications ibuprofen 600 mg oral tablet 1 tablet = 600 mg, By Mouth, 4 times a day, # 12 tablet, 0 Refills, Maintenance, 07/11/15 14:10:48,Tablet Start Date: 07/11/15 Stop Date: 07/14/15 Status: Ordered Problem List Condition Confirmation Course Effective Dates Status Health St [facility] Informant Adjustment disorder with mixed anxiety and depressed mood Confirmed Active Isolated or specific phobia Confirmed Active Patient Care team information Care Team Personnel Name: Michael Webster MD Position: Reference Physician Member Role: PCP Address: Address: [address] [place] [address] Drive [address] [place] [id number]- Care Team Related Persons Name: MEHNAZ DAVISON Address: home [address] [place] [address]
--- NOTE | 2023-03-12 10:40 | MHC.OFFVIS ---
Intake Intake Visit Reasons: 4 weeks follow up Intake Note: Patient follow up Anxiety. Patient denies any GI issues for today. Literacy Tutor Required: No Accompanied by: Self / Same As Patient Allergies albuterol Allergy (Unknown, Verified 03/12/23 10:37) Nighttime wakefulness penicillin V Allergy (Unknown, Verified 03/12/23 10:37) Hives Sulfa (Sulfonamide Antibiotics) Allergy (Unknown, Verified 03/12/23 10:37) Hives HPI HPI Comments History of Present Illness Details 63 y.o F with PMH of ??hypothyroidism, MV prolapse, who has been having changes in bowel habits and unintentional weight loss. 01/29/23: Pt reports struggling with marital issues at home since Jun which is when she started noticing soft stools, early satiety and weight loss of 20 lbs. Has been having up to 3 BMs per day. No night time sx. No urgency or tenesmus. No blood in stool. No fam hx of colon ca or IBD in first degree relatives. Has hx of hypothyroidism however TSH noted to be exceedingly low x 1 year. Pt remains on levothyroxine 100mcg daily. In terms of remaining labs: ESR and CRP normal. LFTs fine. Stool studies normal. FBS normal. Celiac serology neg 2019. [place] Feb 2019 (Dr Martin): Normal. 03/12/23: Pt cassius for a televisit today as sich with covid-19 infection. Reports improvement in sx of diarrhea. Going 1-2 times a day. BMs are formed. Weight has stabilised and has not lost any weight in the past 4 weeks. Reports modifying her diet which seems to have helped. Levothyroxine dose also adjusted by her PCP. Labs reviewed - fecal calpro borderline elevated. CT Abd/pel 02/27/23: PELVIC VISCERA: Mildly atrophied uterus. 4.2 x 2.8 x 4 cm structure anterior to the uterus projecting toward the right of midline is not a simple cyst; it has density in the range of 50-55 Hounsfield units. It is not clearly separable from the uterus. Therefore, it might represent a subserosal leiomyoma rather than an adnexal mass. It exerts mild mass effect upon the posterior wall of the urinary bladder. No pelvic free fluid. [facility] Medical History Acquired hypothyroidism Anxiety Dyslipidemia Menopause Mitral valve prolapse Vitamin D deficiency Vitiligo Surgical History History of colonoscopy (~02/26/19) H/O knee surgery Family History Mother Osteoporosis High blood pressure Father Heart problem Depression Other Mental health problem Substance abuse Social History Housing: House Alcohol intake: current Alcohol intake frequency: a few times a month Patient Tobacco Use Status: Former Tobacco user Tobacco use type: Cigarette e-Cigarette/Vaping Use: Never Used Second Hand Smoke Exposure: Yes service: No Current occupational status: employed 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 Cognitive needs: No Hearing needs: No Vision needs: Yes Review of Systems Const All systems reviewed & are unremarkable except as noted in HPI and below Physical Exam Vital Signs: video visit: Gen appear: non toxic appearing Chest: no overt resp distress, speaking in full sentences Assessment & Plan Assessment & Plan (1) Weight loss, non-intentional: Code(s): R63.4 - Abnormal weight loss (2) Low TSH level: Code(s): R79.89 - Other specified abnormal findings of blood chemistry (3) Anxiety: Code(s): F41.9 - Anxiety disorder, unspecified (4) Pelvic mass: Code(s): R19.00 - Intra-abdominal and pelvic swelling, mass and lump, unspecified site Plan Reviewed with the pt that most consistent with IBS related diarrhea. However appears some of it was likely being contributed to hyperthyroidism as well as anxiety. Weight loss and diarrhea both better now. Fecal calpro is borderline. Will have her repeat this (after she has recovered from covid-19) and follow up in 4 weeks. If has persistent diarrheal sx by then and/or fecal calpro elevated, low threshold to proceed with endoscopic work up. She has already reached out to her server software engineer Dr Cunningham re the pelvic mass finding on CT scan. Pt also had questions about adjusting her levothyroxine dose and was encouraged to reach out to her PCP re this. Follow up 4 weeks. Orders: Orders Calprotectin, Fecal Today R19.7 - Diarrhea, unspecified Coding Level of Care Code Est Pt Level 4 (37428) Diagnoses Weight loss, non-intentional R63.4 Low TSH level R79.89 Anxiety F41.9 Pelvic mass R19.00
== END 2023-03-12 11:38 | disposition home or self-care (01) ==
LOC: HO.HGI 10:36
PROVIDERS: PCP Internal Medicine; Visit Provider Internal Medicine
DX: R63.4 Abnormal weight loss (principal); R79.89 Other specified abnormal findings of blood chemistry; F41.9 Anxiety disorder, unspecified; R19.00 Intra-abdominal and pelvic swelling, mass and lump, unspecified site
CPT/HCPCS: 99214

== ENCOUNTER → 2023-03-12 10:36 | Outpatient (BNVA) | payer BC, SELFPAY | PROVIDERS: PCP Internal Medicine; Visit Provider Internal Medicine ==

== ENCOUNTER 2023-04-02 11:17 | Outpatient (REF) | payer BC, SELFPAY ==
[2023-04-02 13:29] LABS: Alanine Aminotransferase 30 U/L (0-31); Albumin Level 4.9 g/dL (3.5-5.0); Alkaline Phosphatase 71 U/L (39-117); Anion Gap 15 (12-20); Aspartate Amino Transferase 28 U/L (5-31); Bilirubin Total 0.6 mg/dL (0.0-1.0); Blood Urea Nitrogen 15 mg/dL (9-16); Calcium 10.4 mg/dL (8.4-10.2); Carbon Dioxide 26 mmol/L (22-29); Chloride 100 mmol/L (96-108); Estimated Glomerular Filt Rate > 60; Free T4 (Free Thyroxine) 1.08 ng/dL (0.71-1.85); Glucose Random 94 mg/dL (60-115); Potassium 3.9 mmol/L (3.3-5.1); Sodium 137 mmol/L (135-145); Total Protein 7.9 g/dL (6.5-8.0)
[2023-04-02 15:52] LABS: Appearance Urine Clear; Color Urine Yellow; Glucose Urine UA Negative (Negative); Leukocyte Esterase Urine Trace (Negative); Nitrite Urine Negative (Negative); Specific Gravity - Urine <= 1.005 (1.005-1.025); UMIC TRIGGER UACC YES; Urine Blood Negative (Negative); Urine Ketones Negative (Negative); Urine Protein Negative (Neg-Trace)
[2023-04-02 15:57] LABS: Bacteria Urine None Seen (None Seen); Hyaline Casts Urine 0-2 /LPF (0-2); RBC Urine 0-2 /HPF (0-2); Squamous Epithelial Cell Urine 0-2 /HPF (0-2); WBC Urine 0-5 /HPF (0-5)
[2023-04-09 00:19] LABS: Calprotectin, Fecal 28 mcg/g
== END 2023-04-02 11:18 | disposition home or self-care (01) ==
LOC: HO.LAB 11:17
PROVIDERS: PCP Internal Medicine; Visit Provider Internal Medicine
DX: I34.1 Nonrheumatic mitral (valve) prolapse (principal); R19.7 Diarrhea, unspecified; E03.9 Hypothyroidism, unspecified
CPT/HCPCS: 36415; 80053; 81001; 83993; 84439; 84443

== ENCOUNTER 2023-04-09 12:49 | Outpatient (AMB) | payer BC, SELFPAY ==
--- NOTE | 2023-04-09 12:54 | A.OFFVIS_ITS ---
Intake Vital Signs 04/09/23 12:56 Height 5 ft 4 in Weight 105 lb 13.15 oz BMI 18.2 BP 121/62 Blood Pressure Location Lt brachial Position Sitting Pulse 68 Intake Visit Reasons: 4 week follow up Intake Note: Bobbi presents in the office as a 4 week follow up. CC: She states that she has noticed she is having less problems having BMs which is good news. She feels like her stool has been more firm and she has been careful with eating fruits to make sure that she keeps her stools firm. Allergies penicillin V Allergy (Unknown, Verified 04/09/23 12:57) Hives Sulfa (Sulfonamide Antibiotics) Allergy (Unknown, Verified 04/09/23 12:57) Hives HPI HPI Comments History of Present Illness Details 63 y.o F with PMH of ??hypothyroidism, M V prolapse, who has been having changes in bowel habits and unintentional weight loss. 01/29/23: Pt reports struggling with marital issues at home since Jun which is when she started noticing soft stools, early satiety and weight loss of 20 lbs. Has been having up to 3 BMs per day. No night time sx. No urgency or tenesmus. No blood in stool. No fam hx of colon ca or IBD in first degree relatives. Has hx of hypothyroidism however TSH noted to be exceedingly low x 1 year. Pt remains on levothyroxine 100mcg daily. In terms of remaining labs: ESR and CRP normal. LFTs fine. Stool studies normal. FBS normal. Celiac serology neg 2019. [place] Feb 2019 (Dr Martin): Normal. 03/12/23: Pt cassius for a televisit today as sich with covid-19 infection. Reports improvement in sx of diarrhea. Going 1-2 times a day. BMs are formed. Weight has stabilised and has not lost any weight in the past 4 weeks. Reports modifying her diet which seems to have helped. Levothyroxine dose also adjusted by her PCP. Labs reviewed - fecal calpro borderline elevated. CT Abd/pel 02/27/23: PELVIC VISCERA: Mildly atrophied uterus. 4.2 x 2.8 x 4 cm structure anterior to the uterus projecting toward the right of midline is not a simple cyst; it has density in the range of 50-55 Hounsfield units. It is not clearly separable from the uterus. Therefore, it might represent a subserosal leiomyoma rather than an adnexal mass. It exerts mild mass effect upon the posterior wall of the urinary bladder. No pelvic free fluid. 04/09/23: Reports improvement in diarrhea, appetite and is now gaining weight. Repeat fecal calpro normal which the pt was happy to hear. Suspect was likely a combination of hyperthyroidism and anxiety. She has gotten in touch with her OB and unfortunately had to reschedule her appt and is now booked to be seen in Jun, was informed to ensure that OB provider is aware that she was noted to have a pelvic mass. [facility] Medical History Acquired hypothyroidism Anxiety Dyslipidemia Menopause Mitral valve prolapse Vitamin D deficiency Vitiligo Surgical History History of colonoscopy (~02/26/19) H/O knee surgery Family History Mother Osteoporosis High blood pressure Father Heart problem Depression Other Mental health problem Substance abuse Social History Housing: House Alcohol intake: current Alcohol intake frequency: a few times a month Patient Tobacco Use Status: Former Tobacco user Tobacco use type: Cigarette e-Cigarette/Vaping Use: Never Used Second Hand Smoke Exposure: Yes service: No Current occupational status: employed 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 Cognitive needs: No Hearing needs: No Vision needs: Yes Review of Systems Const All systems reviewed & are unremarkable except as noted in HPI and below Physical Exam Vital Signs: Last Vital Signs Pulse 68 04/09/23 12:56 BP 121/62 04/09/23 12:56 BMI result Body Mass Index 18.2 Gen appear: NAD HEENT: nonicteric, no cervical lymphadenopathy Chest: CTA CVS: Regular S1/S2 Abd: soft, nontender, nondistended, bowel sounds + Ext: no peripheral edema Neuro: A/Ox3, noted to move all extremities spontaneously Psych: interacting appropriately Assessment & Plan Assessment & Plan (1) Frequent loose stools: Code(s): R19.7 - Diarrhea, unspecified Qualifiers: Diarrhea type: unspecified type Qualified Code(s): R19.7 - Diarrhea, unspecified (2) Weight loss, non-intentional: Code(s): R63.4 - Abnormal weight loss (3) Low TSH level: Code(s): R79.89 - Other specified abnormal findings of blood chemistry (4) Anxiety: Code(s): F41.9 - Anxiety disorder, unspecified (5) Pelvic mass: Code(s): R19.00 - Intra-abdominal and pelvic swelling, mass and lump, unspecified site Plan Clinically improved. Diarrhea better and weight loss has resolved. Gaining weight now. Work up so far reassuring (sans TSH levels which have now also normalised after adjustment of medication). Likely a combination of IBS-D and hyperthyroidism. In terms of pelvic mass, again reinforced to reach out to OB re the finding of the scan (so far pt had just requested an annual exam visit and is booked for Jun). Pt was encouraged to call our office for any recurrence of sx. Otherwise she was reminded that she will be due for next colo in 2028. PRN follow up. Coding Level of Care Code Est Pt Level 4 (35463) Diagnoses Diarrhea, unspecified type R19.7 Diarrhea type: unspecified type Weight loss, non-intentional R63.4 Low TSH level R79.89 Anxiety F41.9 Pelvic mass R19.00
[2023-04-09 12:56] VITALS: BP 121/62; PULSE 68; BMI 18.2
== END 2023-04-09 16:21 | disposition home or self-care (01) ==
PROVIDERS: PCP Internal Medicine; Visit Provider Internal Medicine
DX: R19.7 Diarrhea, unspecified (principal); R63.4 Abnormal weight loss; R79.89 Other specified abnormal findings of blood chemistry; F41.9 Anxiety disorder, unspecified; R19.00 Intra-abdominal and pelvic swelling, mass and lump, unspecified site
CPT/HCPCS: 99214

== ENCOUNTER → 2023-04-09 12:49 | Outpatient (BNVA) | payer BC, SELFPAY | PROVIDERS: PCP Internal Medicine; Visit Provider Internal Medicine ==

== ENCOUNTER 2023-06-13 14:19 | Outpatient (AMB) | payer BC, SELFPAY ==
--- NOTE | 2023-06-13 14:21 | A.OFFPC_ITS ---
Vital Signs 06/13/23 14:22 Height 5 ft 4 in Weight 105 lb 2 oz BMI 18.0 BP 120/70 Blood Pressure Location Lt brachial Position Sitting Pulse 76 Pulse Source Pulse Oximeter Pulse Oximetry (%) 100 Oxygen Delivery Method Room Air Intake Visit Reasons: mood disorder Intake Note: Patient is here to follow up on mood disorder. 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 Nursing Home Admissions Director: Not Required per policy Accompanied by: Self / Same As Patient Allergies penicillin V Allergy (Unknown, Verified 01/15/24 15:49) Hives Sulfa (Sulfonamide Antibiotics) Allergy (Unknown, Verified 01/15/24 15:49) Hives Medication List - Last Reconciled 06/13/23 by Michael Webster MD acyclovir 500 mg PO BID atenolol 37.5 mg (1.5 x 25 mg) PO DAILY bupropion HCl 300 mg PO QAM 90 days buspirone 5 mg PO BID cranberry gnei-F-fsveqnrt coag 250-30-15 mg (Azo Cranberry Plus Probiotic) tabs PO levothyroxine 75 mcg PO DAILY 90 days mv,Ca,pup-AW-mzgxrz no.157 400 mcg 1 tab PO DAILY sertraline 25 mg PO DAILY sumatriptan succinate 50 mg PO DAILY Tobacco use date assessed: 06/13/23 Dental Screening Dental Screen Date: 06/13/23 Did you have a dental visit in the last 12 months?: Yes Did you have a dental problem in the last 6 months where you did not have access to dental care?: No Was dental information given to patient?: Patient has dentist HPI mood disorder HPI Details Patient comes in today for her follow up visit States that she feels okay and has been doing better on her current medications in terms of her anxiety She denies any increased headaches or dizziness - her migraine headaches appear to be stable recently - was last seen by Dr. Salinas in January 2023 for neurology follow-up She has Sumatriptan to take for her headaches but she has not had to take this in a while now She denies any chest pains, no shortness of breath No nausea/vomiting, no abdominal pain No change in bowel habits noted - states that her diarrhea also appears to have settled down lately She was last seen by Dr. Loco for GI follow-up couple of months ago and was reassured that all of her stool workups done this past year were negative and that her diarrhea and weight loss were likely due to combination of irritable bowel syndrome and anxiety She had her TFTs rechecked back in March and would like to know how they came out [facility] Medical History (Updated 01/16/24 @ 05:06 by Michael Webster MD) Migraine Allergic rhinitis Pure hypercholesterolemia Anxiety Vitamin D deficiency Mitral valve prolapse Dyslipidemia Menopause Vitiligo Acquired hypothyroidism Surgical History History of colonoscopy (~02/26/19) H/O knee surgery Family History Mother Osteoporosis High blood pressure Father Heart problem Depression Other Mental health problem Substance abuse Social History Housing: House Alcohol intake: current Alcohol intake frequency: a few times a month Patient Tobacco Use Status: Former Tobacco user Tobacco use type: Cigarette e-Cigarette/Vaping Use: Never Used Second Hand Smoke Exposure: Yes service: No Current occupational status: employed 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 Cognitive needs: No Hearing needs: No Vision needs: Yes (glasses) Questionnaire Thrive Questionnaire Date Thrive assessed: 01/09/23 RON-7 AMB Questionnaire RON-7 Date RON - 7 assessed: 06/13/23 Feeling nervous, anxious, or on edge: 3 = Nearly every day Not being able to stop or control worryin = Nearly every day Worrying too much about different things: 3 = Nearly every day Trouble relaxin = Not at all Being so restless that it is hard to sit still: 1 = Several days Becoming easily annoyed or irritable: 1 = Several days Feeling afraid as if something awful might happen: 0 = Not at all Total RON-7 score (0-4 normal; 5-9 mild; 10-14 moderate; 15-21 severe): 11 Source: Developed by Drs. Aaron Wiseman, Marisel Anderson, Jose Manuel Rodríguez and colleagues, with an educational ting from [employer]. Review of Systems Const Denies chills, Reports fatigue, Denies fever(s), Denies headache(s) (better controlled lately) and Reports weight gain (lately) ENT Denies dysphagia, Denies dizziness, Denies otalgia, Denies headache(s) (better controlled lately), Denies neck pain, Denies odynophagia and Denies sore throat Card Denies chest pain, Denies palpitations and Denies dyspnea Resp Denies chest congestion, Denies cough and Denies dyspnea GI Denies abdominal pain, Denies constipation, Denies dysphagia, Denies heartburn, Denies diarrhea (better controlled), Denies nausea, Denies odynophagia and Denies vomiting Denies difficulty voiding, Denies nocturia, Reports hot flashes (occasionally lately), Denies dysuria and Denies urinary urgency Musc Denies back pain and Denies neck pain Skin/Breast Denies rash Neuro Denies dizziness and Denies headache(s) (better controlled lately) Psych Reports anxiety (better controlled) Endo Reports fatigue and Denies palpitations Physical exam (Primary Care) Vital Signs: Last Vital Signs Pulse 76 06/13/23 14:22 BP 120/70 06/13/23 14:22 Pulse Ox 100 06/13/23 14:22 Oxygen Delivery Method Room Air 06/13/23 14:22 BMI result Body Mass Index 18.0 Tobacco/Smoking Status: Tobacco use Status Tobacco use date assessed 06/13/23 06/13/23 14:33 Patient Tobacco Use Status Former Tobacco user 06/13/23 14:33 Tobacco use type Cigarette 06/13/23 14:33 e-Cigarette/Vaping Use Never Used 06/13/23 14:33 Thrive Assessment: Date of Thrive Assessment Date Thrive assessed 01/09/23 06/13/23 14:33 Const General: no acute distress and alert HENMT Ears: TM's normal bilaterally and EAC's normal Throat: Yes posterior oropharynx normal and Yes tonsils normal (no TP congestion) Neck Neck: Yes no lymphadenopathy and Yes supple Thyroid: Thyroid normal Resp Auscultation: clear to auscultation bilaterally, no rales and no wheezes Cardio Rate: regular rate Rhythm: regular rhythm Heart sounds: no murmurs GI Palpation (GI): Soft to palpation and nontender Auscultation: normal bowel sounds General: Yes no CVA tenderness Back/Spine/Pelvis Back: no CVA tenderness Thoracic/Lumbar Spine: No lumbar spinal tenderness Skin Rashes: no rashes Extrem General: Yes no clubbing, cyanosis or edema Results Reviewed Results Reviewed: Laboratory Tests 04/02/23 04/02/23 11:58 14:13 Sodium 137 Potassium 3.9 Creatinine 0.87 Estimated GFR > 60 Random Glucose 94 Calcium 10.4 H AST 28 ALT 30 TSH 0.60 Free T4 1.08 Ur Specific [place] <= 1.005 Urine Protein Negative Urine Glucose (UA) Negative Urine Blood Negative Urine Nitrite Negative Ur Leukocyte Esterase Trace H Assessment and Plan Assessment & Plan (1) Mitral valve prolapse: Comment: Repeat echocardiogram done on 02/22/2018 showed (+) mild prolapse of the posterior leaflet with mild regurgitation, normal LV systolic and diastolic function, normal right ventricular systolic pressure, and normal pericardial structure (previous echocardiogram was done in 2013) - recommend repeat echocardiogram in 1 to 2 years Code(s): I34.1 - Nonrheumatic mitral (valve) prolapse Plan: Previous echocardiogram findings in 2018 noted as above; she also appear to have mild MR and trace TR on her echo done in 2018 Patient also had a stress echocardiogram done on 04/03/2018 that was a negative stress echo for chest pain with no ECG evidence of ischemia and no echocardiographic evidence for myocardial ischemia. She had a brief episode of atrial fibrillation in recovery. Repeat echocardiogram done in October 2022 came out normal - the left ventricular systolic function is normal and?the calculated ejection fraction is 67% by biplane method. There is also mild MR but no other obvious valvular pathology is seen on this study Continue Atenolol 37.5 mg (25 mg x 1.5 tablets) QD - she has been taking this for years, presumably for symptoms of some palpitations in the past related to her MVP (2) Acquired hypothyroidism: Code(s): E03.9 - Hypothyroidism, unspecified Plan: Continue Levothyroxine 75 mcg QD - dose was lowered from 100 mcg QD to 75 mcg QD back in January 2023 when her TFTs were off. likely influenced by her significant weight loss earlier this year Her TFTs done in October 2022 still showed a suppressed TSH level but her free T4 was high normal TFTs were normal when they were repeated last March 2023 with the dose adjustment in her meds done in January 2023 Will recheck her TFTs again in a few months for follow up (3) Pure hypercholesterolemia: Code(s): E78.00 - Pure hypercholesterolemia, unspecified Plan: Her total and LDL cholesterol levels were slightly elevated at 214 mg/dl and 136 mg/dl respectively when they were last checked on 10/23/2022 Reinforced low cholesterol diet (4) Migraine: Code(s): G43.909 - Migraine, unspecified, not intractable, without status migrainosus Qualifiers: Migraine type: migraine (< 15 days per month) without aura Status migrainosus presence: without status migrainosus Intractability: not intractable Qualified Code(s): G43.009 - Migraine without aura, not intractable, without status migrainosus Plan: Reinforced avoidance of migraine triggers She takes Sumatriptan 50 mg PRN Was last seen by neurology (Dr. Salinas) on 01/19/2023 for follow up (5) Anxiety: Code(s): F41.9 - Anxiety disorder, unspecified Plan: Continue Bupropion 300 mg QD, Buspirone 5 mg BID and Sertraline 25 mg QD Follow up with psychiatry as scheduled Plan Follow up in 6 months Coding Level of Care Code Est Pt Level 4 (83767) Diagnoses Mitral valve prolapse I34.1 Acquired hypothyroidism E03.9 Pure hypercholesterolemia E78.00 Migraine without aura and without status migrainosus, not intractable G43.009 Migraine type: migraine (< 15 days per month) without aura Status migrainosus presence: without status migrainosus Intractability: not intractable Anxiety F41.9
[2023-06-13 14:22] VITALS: BP 120/70; PULSE 76; O2SAT 100; BMI 18.0
== END 2023-06-13 15:16 | disposition home or self-care (01) ==
PROVIDERS: PCP Internal Medicine; Visit Provider Internal Medicine
DX: I34.1 Nonrheumatic mitral (valve) prolapse (principal); E03.9 Hypothyroidism, unspecified; E78.00 Pure hypercholesterolemia, unspecified; G43.009 Migraine without aura, not intractable, without status migrainosus; F41.9 Anxiety disorder, unspecified
CPT/HCPCS: 99499

== ENCOUNTER 2023-09-06 15:31 | Outpatient (AMB) | payer BC, SELFPAY ==
[2023-09-06 15:36] VITALS: BP 110/60; PULSE 68; TEMP 36.9; O2SAT 100
--- NOTE | 2023-09-06 15:36 | AM.OFFWIN_ITS ---
Intake Vital Signs 09/06/23 15:36 Height 5 ft 4 in BP 110/60 Blood Pressure Location Rt brachial Position Sitting Pulse 68 Pulse Source Pulse Oximeter Temp 98.4 F Temp Source Oral Pulse Oximetry (%) 100 Oxygen Delivery Method Room Air Intake Visit Reasons: EP Sore throat possible strep Intake Note: pt is here for a sore throat since 06/13/23 she says it comes and goes pt says it does hurt swallow pt says has a runny nose and a little congestion Patient Tobacco Use Status: Former Tobacco user Allergies penicillin V Allergy (Unknown, Verified 09/06/23 15:38) Hives Sulfa (Sulfonamide Antibiotics) Allergy (Unknown, Verified 09/06/23 15:38) Hives Do you need a note to return to daycare/school/sports/work: No HPI HPI Comments History of Present Illness Details 63 y/o female patient who presents to [facility] in clinic with c/o Sore- throat since May. Reports pain with swallowing. Denies fevers, chills, nausea or vomiting. Reports symptoms come and go. She has been taking Zyrtec but not daily. [facility] Medical History Acquired hypothyroidism Anxiety Dyslipidemia Menopause Mitral valve prolapse Vitamin D deficiency Vitiligo Surgical History History of colonoscopy (~02/26/19) H/O knee surgery Family History Mother Osteoporosis High blood pressure Father Heart problem Depression Other Mental health problem Substance abuse Social History Housing: House Alcohol intake: current Alcohol intake frequency: a few times a month Patient Tobacco Use Status: Former Tobacco user Tobacco use type: Cigarette e-Cigarette/Vaping Use: Never Used Second Hand Smoke Exposure: Yes service: No Current occupational status: employed 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 Cognitive needs: No Hearing needs: No Vision needs: Yes (glasses) Review of Systems Const All systems reviewed & are unremarkable except as noted in HPI and below Physical Exam Vital Signs: Last Vital Signs Temp 98.4 F 03/21/24 15:36 Pulse 68 09/06/23 15:36 BP 110/60 09/06/23 15:36 Pulse Ox 100 09/06/23 15:36 Oxygen Delivery Method Room Air 09/06/23 15:36 Const General: comfortable and no acute distress Orientation/consciousness: patient oriented x3 HEENT Head: Yes normocephalic Ears: external ears normal and TM's normal bilaterally General nose exam: Abnormal mucous membranes and turbinates present boggy and er ythematous Face and sinus: Yes sinuses nontender Mouth: moist mucous membranes Throat: Yes posterior oropharynx normal Neuro General: patient oriented x3 Results AMB Rapid Strep AMB Rapid Strep Negative Last Edit by Suzanne Holliday CMA on 09/06/23 16 :03 Assessment & Plan Assessment & Plan (1) Allergic rhinitis: Code(s): J30.9 - Allergic rhinitis, unspecified Qualifiers: Allergic rhinitis trigger: unspecified Allergic rhinitis seasonality: seasonal Qualified Code(s): J30.2 - Other seasonal allergic rhinitis Plan: - Flonase PRN - Zrytec PRN - If symptoms not better, F/U with PCP for possible ENT referral. Orders: Orders AMB Rapid Strep Screen Today Z13.9 - Encounter for screening, unspecified Medications: New fluticasone propionate 50 mcg/actuation (Flonase Allergy Relief) administer into each nostril 1 spray intranasal DAILY 16 grams 0RF J30.2 - Other seasonal allergic rhinitis cetirizine (Zyrtec) 10 mg PO DAILY PRN 30 tabs 0RF allergy symptoms J30.2 - Other seasonal allergic rhinitis Coding Level of Care Code Est Pt Level 3 (07493) Diagnoses Seasonal allergic rhinitis, unspecified trigger J30.2 Allergic rhinitis trigger: unspecified Allergic rhinitis seasonality: seasonal Time Spent (min) 15
== END 2023-09-06 16:33 | disposition home or self-care (01) ==
PROVIDERS: PCP Internal Medicine; Visit Provider Nurse Practitioner Family
DX: Z13.9 Encounter for screening, unspecified (principal); J30.2 Other seasonal allergic rhinitis
CPT/HCPCS: 87880; 99213

== ENCOUNTER 2024-01-15 15:03 | Outpatient (AMB) | payer OTHER, SELFPAY ==
--- NOTE | 2024-01-15 15:05 | A.OFFPC_ITS ---
Vital Signs 01/15/24 15:06 Height 5 ft 4 in Weight 117 lb BMI 20.1 BP 92/58 L Blood Pressure Location Lt brachial Position Sitting Pulse 69 Pulse Source Pulse Oximeter Pulse Oximetry (%) 98 Oxygen Delivery Method Room Air Intake Visit Reasons: Annual exam Allergies penicillin V Allergy (Unknown, Verified 01/15/24 15:49) Hives Sulfa (Sulfonamide Antibiotics) Allergy (Unknown, Verified 01/15/24 15:49) Hives Medication List - Last Reconciled 01/15/24 by Michael Webster MD acyclovir 500 mg PO BID atenolol 37.5 mg (1.5 x 25 mg) PO DAILY bupropion HCl 100 mg PO .QD cetirizine (Zyrtec) 10 mg PO DAILY PRN fluticasone propionate 50 mcg/actuation (Flonase Allergy Relief) 1 spray intranasal DAILY levothyroxine 75 mcg PO DAILY 90 days mv,Ca,mjz-GM-[id number] no.157 400 mcg 1 tab PO DAILY sertraline 25 mg PO DAILY Tobacco use date assessed: 01/15/24 Dental Screening Dental Screen Date: 01/15/24 Did you have a dental visit in the last 12 months?: Yes Did you have a dental problem in the last 6 months where you did not have access to dental care?: No Was dental information given to patient?: Patient has dentist HPI Annual exam HPI Details Patient comes in today for her annual physical examination States that she feels okay except for some recurrent neck soreness lately She denies any headaches or dizziness Denies any chest pains, no SOB No nausea/vomiting, no abdominal pain although she reports feeling gassy often No change in bowel habits noted - states that she moves her bowels regularly and is not constipated She denies any acute urinary symptoms Needs a couple of her Rx refilled Had her BMD done last year in 01/2023 - BMD was normal Her last mammogram on record was on 08/19/2020 - mammogram was done down in [place], [place]; she has declined going for mammograms since as she finds the procedure too painful Her last pap smear and gynecology exam was done on 07/06/2023 - 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 Martin back on 02/26/2019 - procedure was normal and she was advised that her next one should be in 10 years (2028) [facility] Medical History (Updated 01/16/24 @ 05:06 by Michael Webster MD) Migraine Allergic rhinitis Pure hypercholesterolemia Anxiety Vitamin D deficiency Mitral valve prolapse Dyslipidemia Menopause Vitiligo Acquired hypothyroidism Surgical History History of colonoscopy (~02/26/19) H/O knee surgery Family History Mother Osteoporosis High blood pressure Father Heart problem Depression Other Mental health problem Substance abuse Social History Housing: House Alcohol intake: current Alcohol intake frequency: a few times a month Patient Tobacco Use Status: Former Tobacco user Tobacco use type: Cigarette e-Cigarette/Vaping Use: Never Used Second Hand Smoke Exposure: Yes service: No Current occupational status: employed 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 1. Little interest or pleasure in doing things: several days 2. Feeling down, depressed, or hopeless: not at all 3. Trouble falling or staying asleep, or sleeping too much: several days 4. Feeling tired or having little energy: not at all 5. Poor appetite or overeating: several days 6. Feeling bad about yourself - or that you are a failure or have let yourself or your family down: several days 7. Trouble concentrating on things, such as reading the newspaper or watching television: several days 8. Moving or speaking so slowly that other people could have noticed. Or the opposite - being so fidgety or restless that you have been moving around a lot more than usual: several days 9. Thoughts that you would be better off or of hurting yourself in some way: more than half the days (More so that is scratches herself ) Total score: 8 Depression Screening Interpretation: Positive Depression Screening Follow-up: Existing condition and In treatment Depression Screening Done: Yes 31724 - PHQ-9 Billing: Yes Source: Developed by Drs. Aaron LMarisel Lennon Kurt Kroenke and colleagues, with an educational ting from [employer]. Thrive Questionnaire Date Thrive assessed: 01/15/24 I am a: Patient What is your living situation today?: I have a steady place to live Within the past 12 months, did the food you bought not last and you didn't have the money to get more?: Never true Within the past 12 months, did you worry whether your food would run out before you got money to buy more?: Never true Do you have trouble paying for medicines?: No Do you have trouble getting transportation to medical appointments?: No Do you have trouble paying your heating and electricity bill?: No Do you have trouble taking care of your child, family member or friend?: No Do you have trouble with day-to-day activities such as bathing, preparing meals, shopping, managing finances, etc.?: No Are you currently unemployed and looking for a job?: No Are you interested in more education?: No Currently or been in a relationship where the following occur: No concerns reported THRIVE Score: 0 AUDIT C Alcohol Use Questionnaire (AUDIT-C) 1. How often do you have a drink containing alcohol?: Monthly or less 2. How many drinks containing alcohol do you have on a typical day when you are drinking?: 1 or 2 3. How often do you have six or more drinks on one occasion?: Never Total Score: 1 Score Reviewed/Action Taken: Yes RON-7 AMB Questionnaire RON-7 Date RON - 7 assessed: 01/15/24 Feeling nervous, anxious, or on edge: 3 = Nearly every day Not being able to stop or control worryin = Nearly every day Worrying too much about different things: 3 = Nearly every day Trouble relaxin = Not at all Being so restless that it is hard to sit still: 1 = Several days Becoming easily annoyed or irritable: 1 = Several days Feeling afraid as if something awful might happen: 0 = Not at all Total RON-7 score (0-4 normal; 5-9 mild; 10-14 moderate; 15-21 severe): 11 Source: Developed by Marisel Peres Kurt Kroenke and colleagues, with an educational ting from [employer]. Review of Systems Const Denies chills, Denies fatigue, Denies fever(s), Denies headache(s) and Denies malaise Eyes Denies blurry vision, Denies change in vision, Denies irritation and Denies itchy eyes ENT Denies dysphagia, Denies dizziness, Denies otalgia, Denies headache(s), Denies nasal congestion, Denies odynophagia, Denies sinus pain and Denies sore throat Card Denies chest pain, Denies rapid heart rate, Denies irregular heart rhythm, Denies palpitations and Denies dyspnea Resp Denies chest congestion, Denies cough, Denies dyspnea and Denies wheezing GI Denies abdominal pain, Denies bloating (but feels gassy often lately), Denies constipation, Denies dysphagia, Denies heartburn, Denies diarrhea, Denies nausea, Denies odynophagia and Denies vomiting Denies hematuria, Denies urinary frequency, Denies dysuria, Denies urinary incontinence and Denies urinary urgency Musc Details: (+) recurrent neck soreness lately Denies back pain, Denies arthralgias, Denies joint swelling and Denies muscle weakness Skin/Breast Denies breast pain, Denies breast mass, Denies change in pigmentation, Denies lesions, Denies rash and Denies unusual bruising Neuro Denies dizziness, Denies headache(s) and Denies paresthesias Psych Denies anxiety and Denies depression Endo Denies fatigue and Denies palpitations Usama/Lymph Denies easy bruising Aller/Immun Denies itchy eyes and Denies wheezing Physical exam (Primary Care) Vital Signs: Last Vital Signs Pulse 69 01/15/24 15:06 BP 92/58 L 01/15/24 15:06 Pulse Ox 98 01/15/24 15:06 Oxygen Delivery Method Room Air 01/15/24 15:06 BMI result Body Mass Index 20.1 Tobacco/Smoking Status: Tobacco use Status Tobacco use date assessed 01/15/24 01/15/24 15:17 Patient Tobacco Use Status Former Tobacco user 01/15/24 15:17 Tobacco use type Cigarette 01/15/24 15:17 e-Cigarette/Vaping Use Never Used 01/15/24 15:17 PHQ-9: PHQ-9 Score PHQ-9: Total score 8 01/15/24 15:50 Depression Screening Interpretation: Positive Depression Screening Follow-up: Existing condition and In treatment Thrive Assessment: Date of Thrive Assessment Date Thrive assessed 01/15/24 01/15/24 15:17 Currently or been in a relationship where the following occur: No concerns reported Const General: no acute distress, alert and awake Orientation/consciousness: patient oriented x3 [facility] Head: Yes normocephalic and Yes atraumatic Ears: external ears normal, TM's normal bilaterally and EAC's normal General nose exam: No nasal discharge present Face and sinus: Yes normal facial exam and Yes sinuses nontender Teeth and gingiva: dentition normal Throat: Yes posterior oropharynx normal and Yes tonsils normal (no TP congestion) Eyes Eyelids: Yes eyelids normal Conjunctivae: conjunctivae normal Pupils: Equal, round and reactive pupils present EOM: EOMs intact bilaterally Neck Other: (+) soreness/tenderness over the muscles on the back of the neck - muscles feel tight on exam Neck: Yes no lymphadenopathy Thyroid: Thyroid normal Resp Auscultation: clear to auscultation bilaterally, no rales and no wheezes Cardio Rate: regular rate Rhythm: regular rhythm Heart sounds: no murmurs GI Palpation (GI): Soft to palpation, nontender and No hepatosplenomegaly present Auscultation: normal bowel sounds General: Yes no CVA tenderness Back/Spine/Pelvis Back: no CVA tenderness Cervical Spine: cervical muscular tenderness and No Cervical spine tenderness Thoracic/Lumbar Spine: thoracic and lumbar spine normal to inspection Skin Lesions: no lesions Rashes: no rashes Neuro General: patient oriented x3, moves all extremities, no focal motor deficits and CN's II-XI intact bilaterally Cranial nerves: Yes Equal, round and reactive pupils present Cognition (Neuro): normal cognition Gait exam (Neuro): Normal gait present Extrem General: Yes no clubbing, cyanosis or edema Assessment and Plan Assessment & Plan (1) Annual physical exam: Code(s): Z00.00 - Encounter for general adult medical examination without abnormal findings Plan: Check labs She is up-to-date with her screening colonoscopy - last done in 2018 and is due for repeat in 2028 She is also reportedly up-to-date with her annual pap smear and 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 - these were done earlier this year in 06/2023 (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 [facility]) Her last mammogram on record was on 08/19/2020 - mammogram was done down in [place], [place]; she has declined going for mammograms since as she finds the procedure too painful BMD done last 01/2023 came out normal (2) Mitral valve prolapse: Comment: Repeat echocardiogram done on 02/22/2018 showed (+) mild prolapse of the posterior leaflet with mild regurgitation, normal LV systolic and diastolic function, normal right ventricular systolic pressure, and normal pericardial structure (previous echocardiogram was done in 2013) - recommend repeat echocardiogram in 1 to 2 years Code(s): I34.1 - Nonrheumatic mitral (valve) prolapse Plan: Previous echocardiogram findings in 2018 noted as above; she also appear to have mild MR and trace TR on her echo done in 2018 Patient also had a stress echocardiogram done on 04/03/2018 that was a negative stress echo for chest pain with no ECG evidence of ischemia and no echocardiographic evidence for myocardial ischemia. She had a brief episode of atrial fibrillation in recovery. Repeat echocardiogram done in October 2022 came out normal - the left ventricular systolic function is normal and?the calculated ejection fraction is 67% by biplane method. There is also mild MR but no other obvious valvular pathology is seen on this study Continue Atenolol 37.5 mg (25 mg x 1.5 tablets) QD - she has been taking this for years, presumably for symptoms of some palpitations in the past related to her MVP (3) Acquired hypothyroidism: Code(s): E03.9 - Hypothyroidism, unspecified Plan: Continue Levothyroxine 100 mcg QD Her TFTs done in October 2022 still showed a suppressed TSH level but her free T4 was normal; TFTs were normal when they were repeated last March 2023 Will recheck her TFTs for follow up (4) Pure hypercholesterolemia: Code(s): E78.00 - Pure hypercholesterolemia, unspecified Plan: Her total and LDL cholesterol levels were slightly elevated at 214 mg/dl and 136 mg/dl respectively when they were last checked on 10/23/2022 Reinforced low cholesterol diet Will recheck her labs and fasting lipids for follow up (5) Migraine: Code(s): G43.909 - Migraine, unspecified, not intractable, without status migrainosus Qualifiers: Migraine type: migraine (< 15 days per month) without aura Status migrainosus presence: without status migrainosus Intractability: not intractable Qualified Code(s): G43.009 - Migraine without aura, not intractable, without status migrainosus Plan: Reinforced avoidance of migraine triggers She takes Sumatriptan 50 mg PRN Was last seen by neurology (Dr. Salinas) on 01/19/2023 (6) Allergic rhinitis: Code(s): J30.9 - Allergic rhinitis, unspecified Qualifiers: Allergic rhinitis trigger: unspecified Allergic rhinitis seasonality: unspecified Qualified Code(s): J30.9 - Allergic rhinitis, unspecified Plan: Continue Cetirizine 10 mg QD PRN and Fluticasone 50 mcg nasal spray QD PRN (7) Anxiety: Code(s): F41.9 - Anxiety disorder, unspecified Plan: Continue Bupropion 100 mg QD and Sertraline 25 mg QD Follow up with psychiatry as scheduled Plan Follow up in 6 months Orders: Orders Comprehensive [employer] Panel Fast 01/15/24 E78.00 - Pure hypercholesterolemia, unspecified, Z00.00 - Encounter for general adult medical examination without abnormal findings Lipid Panel 01/15/24 E78.00 - Pure hypercholesterolemia, unspecified, Z00.00 - Encounter for general adult medical examination without abnormal findings UA CC w/rflx Micro + Cult 01/15/24 R30.0 - Dysuria, Z00.00 - Encounter for general adult medical examination without abnormal findings Vitamin D 25-OH Total 01/15/24 E55.9 - Vitamin D deficiency, unspecified, Z00.00 - Encounter for general adult medical examination without abnormal findings Free T4 (Free Thyroxine) 01/15/24 E03.9 - Hypothyroidism, unspecified Complete Blood Count Auto Diff 01/15/24 D64.9 - Anemia, unspecified, Z00.00 - Encounter for general adult medical examination without abnormal findings Thyroid Stimulating Hormone 01/15/24 E03.9 - Hypothyroidism, unspecified Hemoglobin A1c 01/15/24 R73.9 - Hyperglycemia, unspecified, Z00.00 - Encounter for general adult medical examination without abnormal findings Medications: Refilled atenolol 37.5 mg (1.5 x 25 mg) PO DAILY 180 tabs 1RF levothyroxine 75 mcg PO DAILY 90 days 90 tabs 1RF E03.9 - Hypothyroidism, unspecified Review Patient declined Mammogram: 01/15/24 Coding Level of Care Code Est Pt Prev Care 40-64y([id number]) Diagnoses Annual physical exam Z00.00 Mitral valve prolapse I34.1 Acquired hypothyroidism E03.9 Pure hypercholesterolemia E78.00 Migraine without aura and without status migrainosus, not intractable G43.009 Migraine type: migraine (< 15 days per month) without aura Status migrainosus presence: without status migrainosus Intractability: not intractable Allergic rhinitis, unspecified seasonality, unspecified trigger J30.9 Allergic rhinitis trigger: unspecified Allergic rhinitis seasonality: unspecified Anxiety F41.9
[2024-01-15 15:06] VITALS: BP 92/58; PULSE 69; O2SAT 98; BMI 20.1
== END 2024-01-15 16:33 | disposition home or self-care (01) ==
PROVIDERS: PCP Internal Medicine; Visit Provider Internal Medicine
DX: Z00.00 Encounter for general adult medical examination without abnormal findings (principal); I34.1 Nonrheumatic mitral (valve) prolapse; E03.9 Hypothyroidism, unspecified; E78.00 Pure hypercholesterolemia, unspecified; G43.009 Migraine without aura, not intractable, without status migrainosus; J30.9 Allergic rhinitis, unspecified; F41.9 Anxiety disorder, unspecified
CPT/HCPCS: 99396

== ENCOUNTER 2024-05-01 11:42 | Outpatient (AMB) | payer OTHER, SELFPAY ==
[2024-05-01 11:43] VITALS: BMI 20.8
--- NOTE | 2024-05-01 11:43 | A.OFFPC_ITS ---
Vital Signs 05/01/24 11:43 Height 5 ft 4 in Weight 121 lb 2 oz BMI 20.8 Blood Pressure Location Lt brachial Position Sitting Pulse Source Pulse Oximeter Oxygen Delivery Method Room Air Intake Visit Reasons: Parasites treatment Cigarette Maker Required: No Accompanied by: Self / Same As Patient Allergies penicillin V Allergy (Unknown, Verified 05/01/24 12:20) Hives Sulfa (Sulfonamide Antibiotics) Allergy (Unknown, Verified 05/01/24 12:20) Hives Medication List - Last Reconciled 05/01/24 by Michael Webster MD acyclovir 500 mg PO BID atenolol 37.5 mg (1.5 x 25 mg) PO DAILY bupropion HCl 100 mg PO .QD cetirizine (Zyrtec) 10 mg PO DAILY PRN fluticasone propionate 50 mcg/actuation (Flonase Allergy Relief) 1 spray intranasal DAILY levothyroxine 75 mcg PO DAILY 90 days mv,Ca,lml-BS-dyqeyw no.157 400 mcg 1 tab PO DAILY sertraline 25 mg PO DAILY Tobacco use date assessed: 05/01/24 Dental Screening Dental Screen Date: 05/01/24 Did you have a dental visit in the last 12 months?: Yes Did you have a dental problem in the last 6 months where you did not have access to dental care?: No Was dental information given to patient?: Patient has dentist HPI Parasites treatment HPI Details The patient is a 64-year-old female presenting with skin irritation and itching Patient suspects that these may be due to some parasitic infestation (likely scabies), as she recalls having similar symptoms a few years ago She relates that her symptoms were first attributed to eczema back when she first sought consultation with dermatology years ago during her previous break out A second cutter banana room then prescribed Permethrin cream, suspected for scabies, which provided some improvement but it took approximately eight treatments with the Rx to finally clear up her symptoms Describes her current symptoms, which she states have been going on for a few weeks now, as mostly feeling like needles pricking her legs, feeling a burning sensation on her skin, particularly on her arms, near her bra line, and on her scalp, where she experiences itching She describes small red de leon and blackhead-like spots appearing on her skin intermittently for a few weeks and sometimes feels like something is crawling on her skin States that persistent household cleaning has not alleviated the concern of bugs, as she reports seeing them frequently on surfaces She has a pet cat in her home that has also been treated with Revolution Plus, though it remains primarily indoors The patient is concerned about the potential to spread her condition to others, especially since she has a family gathering coming up this weekend, prompting today's visit Patient also cites increased stress over the past few months she and is in the process of getting a divorce She denies any fever, headaches or dizziness Denies any chest pains, no shortness of breath No nausea/vomiting, no abdominal pain No change in bowel habits noted [facility] Medical History Migraine Allergic rhinitis Pure hypercholesterolemia Anxiety Vitamin D deficiency Mitral valve prolapse Dyslipidemia Menopause Vitiligo Acquired hypothyroidism Surgical History History of colonoscopy (~02/26/19) H/O knee surgery Family History Mother Osteoporosis High blood pressure Father Heart problem Depression Other Mental health problem Substance abuse Social History Housing: House Alcohol intake: current Alcohol intake frequency: a few times a month Patient Tobacco Use Status: Former Tobacco user Tobacco use type: Cigarette e-Cigarette/Vaping Use: Never Used Second Hand Smoke Exposure: Yes service: No Current occupational status: employed 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 1. Little interest or pleasure in doing things: several days 2. Feeling down, depressed, or hopeless: not at all 3. Trouble falling or staying asleep, or sleeping too much: several days 4. Feeling tired or having little energy: not at all 5. Poor appetite or overeating: several days 6. Feeling bad about yourself - or that you are a failure or have let yourself or your family down: several days 7. Trouble concentrating on things, such as reading the newspaper or watching television: several days 8. Moving or speaking so slowly that other people could have noticed. Or the opposite - being so fidgety or restless that you have been moving around a lot more than usual: several days 9. Thoughts that you would be better off or of hurting yourself in some way: more than half the days (More so that is scratches herself ) Total score: 8 Depression Screening Interpretation: Positive Depression Screening Follow-up: Existing condition and In treatment Depression Screening Done: Yes 00037 - PHQ-9 Billing: Yes Source: Developed by Drs. Aaron Wiseman, Marisel Anderson, Jose Manuel Rodríguez and colleagues, with an educational ting from [employer]. Thrive Questionnaire Date Thrive assessed: 05/01/24 I am a: Patient What is your living situation today?: I have a steady place to live Within the past 12 months, did the food you bought not last and you didn't have the money to get more?: Never true Within the past 12 months, did you worry whether your food would run out before you got money to buy more?: Never true Do you have trouble paying for medicines?: No Do you have trouble getting transportation to medical appointments?: No Do you have trouble paying your heating and electricity bill?: No Do you have trouble taking care of your child, family member or friend?: No Do you have trouble with day-to-day activities such as bathing, preparing meals, shopping, managing finances, etc.?: No Are you currently unemployed and looking for a job?: No Are you interested in more education?: No Please select the resources that you would like help with: None Currently or been in a relationship where the following occur: No concerns reported THRIVE Score: 0 AUDIT C Alcohol Use Questionnaire (AUDIT-C) 1. How often do you have a drink containing alcohol?: Monthly or less 2. How many drinks containing alcohol do you have on a typical day when you are drinking?: 1 or 2 3. How often do you have six or more drinks on one occasion?: Never Total Score: 1 Score Reviewed/Action Taken: Yes RON-7 AMB Questionnaire RON-7 Date RON - 7 assessed: 05/01/24 Feeling nervous, anxious, or on edge: 3 = Nearly every day Not being able to stop or control worryin = Nearly every day Worrying too much about different things: 3 = Nearly every day Trouble relaxin = Not at all Being so restless that it is hard to sit still: 1 = Several days Becoming easily annoyed or irritable: 1 = Several days Feeling afraid as if something awful might happen: 0 = Not at all Total RON-7 score (0-4 normal; 5-9 mild; 10-14 moderate; 15-21 severe): 11 Source: Developed by Drs. Aaron Wiseman, Marisel Anderson, Jose Manuel Rodríguez and colleagues, with an educational ting from [employer]. Review of Systems Const Denies chills, Denies fatigue, Denies fever(s) and Denies headache(s) ENT Denies dysphagia, Denies dizziness, Denies otalgia, Denies headache(s), Denies neck pain, Denies odynophagia and Denies sore throat Card Denies chest pain, Denies irregular heart rhythm, Denies palpitations and Denies dyspnea Resp Denies chest congestion, Denies cough and Denies dyspnea GI Denies abdominal pain, Denies constipation, Denies dysphagia, Denies heartburn, Denies diarrhea, Denies nausea, Denies odynophagia and Denies vomiting Denies urinary frequency, Denies dysuria and Denies urinary urgency Musc Denies back pain, Denies arthralgias and Denies neck pain Skin/Breast Reports as per HPI Neuro Denies dizziness, Denies headache(s) and Denies paresthesias Psych Reports anxiety and Denies depression Endo Denies fatigue and Denies palpitations Usama/Lymph Denies easy bruising Physical exam (Primary Care) Vital Signs: Oxygen Delivery Method Room Air 05/01/24 11:43 BMI result Body Mass Index 20.8 Tobacco/Smoking Status: Tobacco use Status Tobacco use date assessed 05/01/24 05/01/24 11:51 Patient Tobacco Use Status Former Tobacco user 05/01/24 11:51 Tobacco use type Cigarette 05/01/24 11:51 e-Cigarette/Vaping Use Never Used 05/01/24 11:51 PHQ-9: PHQ-9 Score PHQ-9: Total score 8 05/01/24 12:33 Depression Screening Interpretation: Positive Depression Screening Follow-up: Existing condition and In treatment Thrive Assessment: Date of Thrive Assessment Date Thrive assessed 05/01/24 05/01/24 11:51 Currently or been in a relationship where the following occur: No concerns reported Const General: no acute distress and alert HENMT Throat: Yes posterior oropharynx normal and Yes tonsils normal (no TP congestion) Neck Neck: Yes no lymphadenopathy and Yes supple Thyroid: Thyroid normal Resp Auscultation: clear to auscultation bilaterally, no rales and no wheezes Cardio Rate: regular rate Rhythm: regular rhythm Heart sounds: no murmurs GI Palpation (GI): Soft to palpation and nontender Auscultation: normal bowel sounds General: Yes no CVA tenderness Back/Spine/Pelvis Back: no CVA tenderness Cervical Spine: No Cervical spine tenderness Thoracic/Lumbar Spine: thoracic and lumbar spine normal to inspection Skin Other: (+) scattered erythematous papular lesions over both arms and over her torso and back and over both leg; there are several linear scratch de leon and superficial abrasions noted on her upper back as well as over all of her extremities Extrem General: Yes no clubbing, cyanosis or edema Coding Level of Care Code Est Pt Level 3 (28633) Diagnoses Pruritic erythematous rash L29.89 Additional Codes PHQ-9 - 78731 - PHQ-9 Billing: Yes ([id number]) Assessment & Plan Assessment & Plan (1) Pruritic erythematous rash: Code(s): L29.89 - Other pruritus Category: Medical Plan: Patient suspects some parasitic infestation as the source of her current dermatologic symptoms and recalls having a similar breakout in the past that responded to treatment with Permethrin (scabies?) although it took up to 8 doses to finally clear up her symptoms She is very concerned about potentially spreading this to others as she has a family gathering coming up this weekend and would like to get some treatment started TADEO Will go ahead and treat her empirically with Permethrin and instructed to repeat same Tx in a couple of weeks if she is still experiencing recurrent symptoms by then Advised that she can just take some OTC antihistamines like Benadryl PRN for symptomatic relief Plan Follow up as scheduled in June 2024 Medications: New permethrin 5% Apply a thin layer of the cream or lotion from neck to toes. You must thoroughly cover all areas of the body. Pay special attention to areas between fingers and toes, under nails, groin, arm pits, buttocks, palms and soles of feet. Leave medicine on overnight and wash off completely in shower the next day. SHOULD also wash all bed sheets and linens then in hot water and bleach and dry in HIGH heat. Can repeat SECOND dose after 14 days IF needed 1 appl topical ONCE 60 grams 0RF 2 doses B86 - Scabies
== END 2024-05-01 12:38 | disposition home or self-care (01) ==
PROVIDERS: PCP Internal Medicine; Visit Provider Internal Medicine
DX: L29.89 Other pruritus (principal)

== ENCOUNTER → 2024-05-01 11:42 | Outpatient (BNVA) | payer OTHER, SELFPAY | PROVIDERS: PCP Internal Medicine; Visit Provider Internal Medicine | DX: L29.89 Other pruritus (principal) | CPT/HCPCS: 96127; 99212 ==

== ENCOUNTER 2024-07-17 10:25 | Outpatient (REF) | payer OTHER, SELFPAY ==
[2024-07-17 10:46] LABS: MANUAL DIFF FLAG NO
[2024-07-17 11:51] LABS: Fibrinogen 317 MG/DL (259-690)
[2024-07-17 11:52] LABS: Basophils Percent Auto 0.4 % (0-2); Eosinophils Absolute Auto 0.1 X10*3/uL (0.0-0.4); Eosinophils Percent Auto 1.4 % (0-4); Hemoglobin 13.9 g/dl (12.0-16.0); Imm Gran Abs Auto 0.01 X10*3/uL (0.00-0.03); Imm Gran Pct Auto 0.2 % (0.0-0.4); Lymphocytes Absolute Auto 1.3 X10*3/uL (1.2-4.9); Lymphocytes Percent Auto 23.8 % (20-40); Mean Corpuscular HGB Conc 33.1 g/dl (31.0-35.0); Mean Corpuscular Hemoglobin 32.3 pg (27.0-33.0); Mean Corpuscular Volume 97.7 fL (80.0-98.0); Mean Platelet Volume 11.1 fL (9.4-12.3); Monocytes Absolute Auto 0.5 X10*3/uL (0.1-1.2); Monocytes Percent Auto 8.8 % (2-11); Neutrophils Absolute Auto 3.7 x10*3/uL (2.0-8.3); Neutrophils Percent Auto 65.4 % (45-73); Platelet Count 237 X10*3/uL (160-400); Red Cell Distribution Width 12.1 % (11.0-16.0); White Blood Count 5.6 X10*3/uL (4.8-10.8)
[2024-07-17 11:53] LABS: Partial Thromboplastin Time 34.9 SEC (26.0-36.8)
[2024-07-17 11:57] LABS: Estimated Average Glucose 105 mg/dL; Hemoglobin A1C 123.2443 umol/L; Hemoglobin A1c % 5.3 % (<6.0); Total Hemoglobin (HGBA1C) 3618.6429 umol/L
[2024-07-17 12:04] LABS: Appearance Urine Clear; Color Urine Yellow; Glucose Urine UA Negative (Negative); Leukocyte Esterase Urine Moderate (2+) (Negative); Nitrite Urine Negative (Negative); Specific Gravity - Urine <= 1.005 (1.005-1.025); UMIC TRIGGER UACC YES; Urine Blood Negative (Negative); Urine Ketones Negative (Negative); Urine Protein Negative (Neg-Trace)
[2024-07-17 12:20] LABS: Bacteria Urine None Seen (None Seen); Hyaline Casts Urine 0-2 /LPF (0-2); RBC Urine 0-2 /HPF (0-2); Squamous Epithelial Cell Urine 0-2 /HPF (0-2); UACC Culture Trigger YES; WBC Urine 0-5 /HPF (0-5)
[2024-07-17 12:35] LABS: Alanine Aminotransferase 32 U/L (0-31); Albumin Level 4.7 g/dL (3.5-5.0); Alkaline Phosphatase 55 U/L (39-117); Anion Gap 10 (12-20); Aspartate Amino Transferase 26 U/L (5-31); Bilirubin Total 0.4 mg/dL (0.0-1.0); Blood Urea Nitrogen 15 mg/dL (9-16); Calcium 9.4 mg/dL (8.4-10.2); Carbon Dioxide 27 mmol/L (22-29); Chloride 106 mmol/L (96-108); Cholesterol 174 mg/dL (<200); Estimated Glomerular Filt Rate > 60; Glucose Fasting 74 mg/dL (60-99); Glucose Random 74 mg/dL (60-115); HDL Cholesterol 70 mg/dL (>40); LDL Cholesterol Calculated 93 mg/dL (<100); Sodium 139 mmol/L (135-145); Total Protein 7.4 g/dL (6.5-8.0); Triglycerides 57 mg/dL (<150)
[2024-07-17 12:56] LABS: Lactate Dehydrogenase 175 U/L (122-220)
[2024-07-17 12:59] LABS: Free T4 (Free Thyroxine) 1.23 ng/dL (0.71-1.85); Thyroid Stimulating Hormone 1.76 uIU/mL (0.32-4.0); Vitamin D 25-OH Total 40.1 ng/mL (>30)
== END 2024-07-17 10:26 | disposition home or self-care (01) ==
LOC: HO.LAB 10:25
PROVIDERS: PCP Internal Medicine; Visit Provider Internal Medicine
DX: Z77.9 Other contact with and (suspected) exposures hazardous to health (principal); R73.9 Hyperglycemia, unspecified; E03.9 Hypothyroidism, unspecified; E55.9 Vitamin D deficiency, unspecified; Z00.00 Encounter for general adult medical examination without abnormal findings; D64.9 Anemia, unspecified; E78.00 Pure hypercholesterolemia, unspecified
CPT/HCPCS: 36415; 80053; 80061; 81001; 81003; 82306; 83036; 83615; 84439; 84443; 85025; 85384; 85730; 87086

== ENCOUNTER 2024-07-18 15:34 | Outpatient (AMB) | payer OTHER, SELFPAY ==
--- NOTE | 2024-07-18 15:46 | A.OFFPC_ITS ---
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 Accompanied by: Self / Same As Patient Allergies penicillin V Allergy (Unknown, Verified 07/18/24 16:13) Hives Sulfa (Sulfonamide Antibiotics) Allergy (Unknown, Verified 07/18/24 16:13) Hives Medication List - Last Reconciled 07/18/24 by Michael Webster MD acyclovir 500 mg PO BID atenolol 37.5 mg (1.5 x 25 mg) PO DAILY bupropion HCl 100 mg PO .QD cetirizine (Zyrtec) 10 mg PO DAILY PRN fluticasone propionate 50 mcg/actuation (Flonase Allergy Relief) 1 spray intranasal DAILY levothyroxine 75 mcg PO DAILY 90 days mv,Ca,[id number]-[id number] no.157 400 mcg 1 tab PO DAILY sertraline 25 mg PO DAILY Tobacco use date assessed: 07/18/24 Dental Screening Dental Screen Date: 07/18/24 Did you have a dental visit in the last 12 months?: Yes Did you have a dental problem in the last 6 months where you did not have access to dental care?: No Was dental information given to patient?: Patient has dentist HPI 6 month f/u HPI Details Patient comes in today for her follow up visit She continues to experience recurrent sensations wherein she feels that she is being bitten repeatedly by some unseen insects on a daily basis States that she recently moved out of her house and has been living in a local hotel for the past few days, as she feels that the ozone level in her house is still significant and she has been experiencing recurrent headaches and other symptoms from exposure before she moved out a few days ago States that she has resorted to using ozone and other disinfecting methods lately to try to debug her house but these seem to all be ineffective as she is still feeling like she is constantly being bitten by bugs/insects She is recently thinking that this could be due to side effects as well from her Bupropion and is currently working with her psychiatrist on trying to wean her off Bupropion and just remain on her Sertraline at a low dose in helping manage her anxiety She is currently from her of many years, which has been a major source of stress for her for the past couple of years, and is now well into the process of dividing up their finances - states that she feels that she her situation is recently improving She denies any headaches or dizziness Denies any chest pains, no SOB No nausea/vomiting, no abdominal pain No change in bowel habits noted Needs her Hydroxyzine Rx refilled She had her follow up labs done yesterday - to discuss her results [facility] Medical History Migraine Allergic rhinitis Pure hypercholesterolemia Anxiety Vitamin D deficiency Mitral valve prolapse Dyslipidemia Menopause Vitiligo Acquired hypothyroidism Surgical History History of colonoscopy (~02/26/19) H/O knee surgery Family History Mother Osteoporosis High blood pressure Father Heart problem Depression Other Mental health problem Substance abuse Social History Housing: House Alcohol intake: current Alcohol intake frequency: a few times a month Patient Tobacco Use Status: Former Tobacco user Tobacco use type: Cigarette e-Cigarette/Vaping Use: Never Used Second Hand Smoke Exposure: Yes service: No Current occupational status: employed 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 1. Little interest or pleasure in doing things: several days 2. Feeling down, depressed, or hopeless: not at all 3. Trouble falling or staying asleep, or sleeping too much: several days 4. Feeling tired or having little energy: not at all 5. Poor appetite or overeating: several days 6. Feeling bad about yourself - or that you are a failure or have let yourself or your family down: several days 7. Trouble concentrating on things, such as reading the newspaper or watching television: several days 8. Moving or speaking so slowly that other people could have noticed. Or the opposite - being so fidgety or restless that you have been moving around a lot more than usual: several days 9. Thoughts that you would be better off or of hurting yourself in some way: more than half the days (More so that is scratches herself ) Total score: 8 Depression Screening Interpretation: Positive Depression Screening Follow-up: Existing condition and In treatment Depression Screening Done: Yes 49639 - PHQ-9 Billing: Yes Source: Developed by Drs. Aaron Wiseman, Marisel Anderson, Jose Manuel Rodríguez and colleagues, with an educational ting from [employer]. Thrive Questionnaire Date Thrive assessed: 07/18/24 I am a: Patient What is your living situation today?: I have a steady place to live Within the past 12 months, did the food you bought not last and you didn't have the money to get more?: Never true Within the past 12 months, did you worry whether your food would run out before you got money to buy more?: Never true Do you have trouble paying for medicines?: No Do you have trouble getting transportation to medical appointments?: No Do you have trouble paying your heating and electricity bill?: No Do you have trouble taking care of your child, family member or friend?: No Do you have trouble with day-to-day activities such as bathing, preparing meals, shopping, managing finances, etc.?: No Are you currently unemployed and looking for a job?: No Are you interested in more education?: No Please select the resources that you would like help with: None Currently or been in a relationship where the following occur: No concerns reported THRIVE Score: 0 AUDIT C Alcohol Use Questionnaire (AUDIT-C) 1. How often do you have a drink containing alcohol?: Monthly or less 2. How many drinks containing alcohol do you have on a typical day when you are drinking?: 1 or 2 3. How often do you have six or more drinks on one occasion?: Never Total Score: 1 Score Reviewed/Action Taken: Yes RON-7 AMB Questionnaire RON-7 Date RON - 7 assessed: 07/18/24 Feeling nervous, anxious, or on edge: 3 = Nearly every day Not being able to stop or control worryin = Nearly every day Worrying too much about different things: 3 = Nearly every day Trouble relaxin = Not at all Being so restless that it is hard to sit still: 1 = Several days Becoming easily annoyed or irritable: 1 = Several days Feeling afraid as if something awful might happen: 0 = Not at all Total RON-7 score (0-4 normal; 5-9 mild; 10-14 moderate; 15-21 severe): 11 Source: Developed by Drs. Aaron Wiseman, Marisel Anderson, Jose Manuel Rodríguez and colleagues, with an educational ting from [employer]. Review of Systems Const Denies chills, Denies fatigue, Denies fever(s) and Denies headache(s) ENT Denies dysphagia, Denies dizziness, Denies otalgia, Denies headache(s), Denies neck pain, Denies odynophagia and Denies sore throat Card Denies chest pain, Denies irregular heart rhythm, Denies palpitations and Denies dyspnea Resp Denies chest congestion, Denies cough and Denies dyspnea GI Denies abdominal pain, Denies constipation, Denies dysphagia, Denies heartburn, Denies diarrhea, Denies nausea, Denies odynophagia and Denies vomiting Denies urinary frequency, Denies dysuria and Denies urinary urgency Musc Denies back pain, Denies arthralgias and Denies neck pain Skin/Breast Reports as per HPI (recurrent sensation of being bitten by insects - see HPI) Neuro Denies dizziness, Denies headache(s) and Denies paresthesias Psych Reports anxiety, Reports depression and Denies panic attacks Endo Denies fatigue and Denies palpitations Usama/Lymph Denies easy bruising Physical exam (Primary Care) Vital Signs: Last Vital Signs Pulse 75 07/18/24 15:58 BP 98/62 07/18/24 15:58 Pulse Ox 94 07/18/24 15:58 Oxygen Delivery Method Room Air 07/18/24 15:58 BMI result Body Mass Index 20.1 Tobacco/Smoking Status: Tobacco use Status Tobacco use date assessed 07/18/24 07/18/24 16:03 Patient Tobacco Use Status Former Tobacco user 07/18/24 15:47 Tobacco use type Cigarette 07/18/24 15:47 e-Cigarette/Vaping Use Never Used 07/18/24 15:47 PHQ-9: PHQ-9 Score PHQ-9: Total score 8 07/18/24 16:16 Depression Screening Interpretation: Positive Depression Screening Follow-up: Existing condition and In treatment Thrive Assessment: Date of Thrive Assessment Date Thrive assessed 07/18/24 07/18/24 16:03 Currently or been in a relationship where the following occur: No concerns reported Const General: no acute distress and alert HENMT Ears: TM's normal bilaterally and EAC's normal Throat: Yes posterior oropharynx normal and Yes tonsils normal (no TP congestion) Neck Neck: Yes supple and No lymphadenopathy Thyroid: Thyroid normal Resp Auscultation: clear to auscultation bilaterally, no rales and no wheezes Cardio Rate: regular rate Rhythm: regular rhythm Heart sounds: no murmurs GI Palpation (GI): Soft to palpation and nontender Auscultation: normal bowel sounds General: Yes no CVA tenderness Back/Spine/Pelvis Back: no CVA tenderness Cervical Spine: No Cervical spine tenderness Thoracic/Lumbar Spine: thoracic and lumbar spine normal to inspection Skin Other: Patient previously had few scattered erythematous papules over both arms, torso, back and over both legs, with some linear scratch de leon and superficial abrasions noted on her upper back and over her extremities but these have all cleared; she is now pointing to a few scattered small punctate red spots without any surrounding erythema or edema as the possible new insect bites that she seems to be still getting Extrem General: Yes no clubbing, cyanosis or edema Results Reviewed Results Reviewed: Laboratory Tests 07/17/24 07/17/24 10:36 10:44 WBC 5.6 Hgb 13.9 Hct 42.0 Plt Count 237 APTT 34.9 Fibrinogen 317 Sodium 139 Potassium 4.0 Creatinine 0.71 Estimated GFR > 60 Fasting Glucose 74 Hemoglobin A1c % 5.3 Calcium 9.4 D AST 26 ALT 32 H Lactate Dehydrogenase 175 Triglycerides 57 Cholesterol 174 LDL Cholesterol, Calc 93 HDL Cholesterol 70 25-OH Vitamin D Total 40.1 TSH 1.76 Free T4 1.23 Ur Specific Howell <= 1.005 Urine Protein Negative Urine Glucose (UA) Negative Urine Blood Negative Urine Nitrite Negative Ur Leukocyte Esterase Moderate (2+) H Coding Level of Care Code Est Pt Level 4 (01581) Diagnoses Insect bite, unspecified site, sequela W57.XXXS Encounter type: sequela Site of insect bite: unspecified site Anxiety F41.9 Mitral valve prolapse I34.1 Acquired hypothyroidism E03.9 Pure hypercholesterolemia E78.00 Migraine without aura and without status migrainosus, not intractable G43.009 Migraine type: migraine (< 15 days per month) without aura Status migrainosus presence: without status migrainosus Intractability: not intractable Allergic rhinitis, unspecified seasonality, unspecified trigger J30.9 Allergic rhinitis trigger: unspecified Allergic rhinitis seasonality: unspecified Additional Codes PHQ-9 - 85490 - PHQ-9 Billing: Yes ([id number]) Assessment & Plan Assessment & Plan (1) Insect bites: Code(s): W57.XXXA - Bitten or stung by nonvenomous insect and other nonvenomous arthropods, initial encounter Qualifiers: Encounter type: sequela Site of insect bite: unspecified site Qualified Code(s): W57.XXXS - Bitten or stung by nonvenomous insect and other nonvenomous arthropods, sequela Plan: Patient continues to describe a recurrent sensation of being bitten by insects all over and her recent attempts at decontaminating/debugging her house have been reportedly ineffective and has also forced her to move out of her house lately due to concerns about ozone exposure - she reports experiencing recurrent headaches lately and she suspects it is from her own exposure to the noxious agents that she has used recently to try to clear out her house of these unseen insects Examination of her skin today reveals only few scattered isolated small punctate red spots without any surrounding reactions, including erythema or edema Patient states that she is currently working with a psychiatrist in trying to lower her dosage and slowly wean off her Bupropion, which she thinks may be in part causing the above symptoms She is currently at a loss on what else to do to try to stop these insects from biting her Have advised patient that all attempts to locate/identify/isolate these insects that keep biting her repetitively for the past several weeks and at debugging/decontaminating her house have proven to be fruitless so far, including empiric treatment with Permethrin a couple of months ago, which also have not helped at all Have discussed with patient that maybe it is time to consider other possibilities, including that the symptoms may be due to tactile hallucination or formication that are triggered by her significant anxiety and stress over the past few months This may explain why she has not seen any actual insects all this time and that the bite lesions that has been referring to seem to appear only as random small red dots without any other associated reactions or changes Have advised her to bring this up and discuss this further with her psychiatrist at her next upcoming appointment (2) Anxiety: Code(s): F41.9 - Anxiety disorder, unspecified Category: Medical Plan: Continue Bupropion 100 mg QD and Sertraline 25 mg QD - states that her current psychiatrist is working with her on trying to wean her off her Bupropion Continue Hydroxyzine 25 mg TID PRN - Rx refilled Follow up with psychiatry as scheduled (3) Mitral valve prolapse: Comment: Repeat echocardiogram done on 02/22/2018 showed (+) mild prolapse of the posterior leaflet with mild regurgitation, normal LV systolic and diastolic function, normal right ventricular systolic pressure, and normal pericardial structure (previous echocardiogram was done in 2013) - recommend repeat echocardiogram in 1 to 2 years Code(s): I34.1 - Nonrheumatic mitral (valve) prolapse Category: Medical Plan: Previous echocardiogram findings in 2018 noted as above; she also has mild MR and trace TR on her echo done in 2018 Patient had a stress echocardiogram done on 04/03/2018 that was negative with no ECG evidence of ischemia and no echocardiographic evidence for myocardial ischemia. She had a brief episode of atrial fibrillation in recovery. Repeat echocardiogram done in October 2022 came out normal - the left ventricular systolic function is normal and?the calculated ejection fraction is 67% by biplane method. There is also mild MR but no other obvious valvular pathology is seen on this study Continue Atenolol 37.5 mg (25 mg x 1.5 tablets) QD - she has been taking this for years, presumably for symptoms of some palpitations in the past related to her MVP although she did mention that taking Atenolol also seems to help her anxiety symptoms somewhat lately (4) Acquired hypothyroidism: Code(s): E03.9 - Hypothyroidism, unspecified Category: Medical Plan: Her TFTs on her labs done yesterday came back normal Continue Levothyroxine 75 mcg QD (5) Pure hypercholesterolemia: Code(s): E78.00 - Pure hypercholesterolemia, unspecified Category: Medical Plan: Results of her labs done yesterday reviewed and discussed with patient - her total and LDL cholesterol levels have improved significantly from a couple of years ago Reinforced low-cholesterol diet (6) Migraine: Code(s): G43.909 - Migraine, unspecified, not intractable, without status migrainosus Category: Medical Qualifiers: Migraine type: migraine (< 15 days per month) without aura Status migrainosus presence: without status migrainosus Intractability: not intractable Qualified Code(s): G43.009 - Migraine without aura, not intractable, without status migrainosus Plan: Patient states that her migraine headaches have been stable/controlled lately Reinforced avoidance of all potential migraine triggers Continue Sumatriptan 50 mg PRN Follow up with neurology as scheduled or as needed - she was last seen by neurology (Dr. Salinas) on 01/19/2023 (7) Allergic rhinitis: Code(s): J30.9 - Allergic rhinitis, unspecified Category: Medical Qualifiers: Allergic rhinitis trigger: unspecified Allergic rhinitis seasonality: unspecified Qualified Code(s): J30.9 - Allergic rhinitis, unspecified Plan: Continue Cetirizine 10 mg QD PRN and Fluticasone 50 mcg nasal spray QD PRN Plan To return in 6 months for her annual physical examination Medications: Refilled hydroxyzine HCl 25 mg PO TID 30 days PRN 90 tabs 1RF anxiety hydroxyzine HCl 25 mg PO TID 30 days PRN 90 tabs 1RF anxiety
[2024-07-18 15:58] VITALS: BP 98/62; PULSE 75; O2SAT 94; BMI 20.1
== END 2024-07-18 16:40 | disposition home or self-care (01) ==
PROVIDERS: PCP Internal Medicine; Visit Provider Internal Medicine
DX: E03.9 Hypothyroidism, unspecified (principal); W57.XXXS Bitten or stung by nonvenomous insect and other nonvenomous arthropods, sequela; F41.9 Anxiety disorder, unspecified; I34.1 Nonrheumatic mitral (valve) prolapse; E78.00 Pure hypercholesterolemia, unspecified; G43.009 Migraine without aura, not intractable, without status migrainosus; J30.9 Allergic rhinitis, unspecified

== ENCOUNTER → 2024-07-18 15:34 | Outpatient (BNVA) | payer OTHER, SELFPAY | PROVIDERS: PCP Internal Medicine; Visit Provider Internal Medicine | DX: F41.9 Anxiety disorder, unspecified (principal); I34.1 Nonrheumatic mitral (valve) prolapse; E03.9 Hypothyroidism, unspecified; E78.00 Pure hypercholesterolemia, unspecified; G43.009 Migraine without aura, not intractable, without status migrainosus; J30.9 Allergic rhinitis, unspecified | CPT/HCPCS: 96127; 99212 ==

== ENCOUNTER 2024-09-01 11:03 | Outpatient (AMB) | payer OTHER, SELFPAY ==
--- NOTE | 2024-09-01 11:13 | A.OFFPC_ITS ---
Vital Signs 09/01/24 11:15 Height 5 ft 4 in Weight 121 lb BMI 20.8 BP 120/72 Blood Pressure Location Lt brachial Position Sitting Pulse 66 Pulse Source Pulse Oximeter Temp 97.5 F Temp Source Temporal Artery Scan Pulse Oximetry (%) 99 Oxygen Delivery Method Room Air Intake Visit Reasons: sore throat/ heaviness in chest Intake Note: Patient is here to follow up on Sore throat and heaviness in chest. Transmitter Chief Required: No Commercial Sales Representative: Not Required per policy Accompanied by: Self / Same As Patient Allergies penicillin V Allergy (Unknown, Verified 09/01/24 11:38) Hives Sulfa (Sulfonamide Antibiotics) Allergy (Unknown, Verified 09/01/24 11:38) Hives Medication List - Last Reconciled 09/01/24 by TAMMI Mejia acyclovir 500 mg PO BID atenolol 37.5 mg (1.5 x 25 mg) PO DAILY 90 days bupropion HCl 100 mg PO .QD cetirizine (Zyrtec) 10 mg PO DAILY PRN fluticasone propionate 50 mcg/actuation (Flonase Allergy Relief) 1 spray intranasal DAILY hydroxyzine HCl 25 mg PO TID PRN 30 days levothyroxine 75 mcg PO DAILY 90 days mv,Ca,vvm-QH-iqobkd no.157 400 mcg 1 tab PO DAILY sertraline 25 mg PO DAILY Tobacco use date assessed: 09/01/24 Dental Screening Dental Screen Date: 07/18/24 HPI sore throat/ heaviness in chest HPI Details Patient is a 64-year-old female with significant past medical history allergic rhinitis, anxiety, mitral valve prolapse, migraines Patient is presenting today for sore throat and heaviness in her chest The reports that she was on bupropion and her body rejected it. After 2 years of being on this medication.The patient reports she started tapering off the bupropion HCL and her symptoms as resolved. The patient reports that she spoke with her psychologist who placed her on Remeron but it was making her fall a sleep Reports that the was started on Sertraline at 25 mg reports that she felt somewhat better feels like she needed more support. Her psychiatrist increased the Sertraline to 50 mg but this is making her sleepy. Reports that she took 1.5 of the tabs instead of the two tabs that she was supposed to take. Reports that she felt like she was getting mite bites and she was spraying her house. Reports that she started bleaching everything in her house. Reports that this started affecting her breathing. The patient reports that she no longer living her house and is staying in a motel. She reports that she only goes to her home to clean. Reports that she has cat that she thought that she was allergic to but she thinks that she is not because the cat is living with her in the motel. The patient reports using all different types of chemicals to clean the house. 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 The patient reports that she saw a supervisor [employer] due to the small red areas on her arm from the bite de [place]on. Report that she did not follow up because it was expensive. She reports that DERM recommended epiceream for the area but it is p ricey. She reports sore throat that is getting better since she has been taking a break from going to the house. Reports that her throat hurts when she goes to the house. Reports that her chest feels heavy when she goes to the house due to heavy chemical use. On exam:The patient left nasal passage is steven and boggy, her throat is normal appearing. Discussed with the patient if she would like to see a alumni coordinator to evaluate her lung. She patient said, she will hold off for now but she is concern if these chemicals could cause her to get cancer. Reports that she has been cleaning her house with different chemicals since March. [facility] Medical History Migraine Allergic rhinitis Pure hypercholesterolemia Anxiety Vitamin D deficiency Mitral valve prolapse Dyslipidemia Menopause Vitiligo Acquired hypothyroidism Surgical History History of colonoscopy (~02/26/19) H/O knee surgery Family History Mother Osteoporosis High blood pressure Father Heart problem Depression Other Mental health problem Substance abuse Social History Housing: House Alcohol intake: current Alcohol intake frequency: a few times a month Patient Tobacco Use Status: Former Tobacco user Tobacco use type: Cigarette e-Cigarette/Vaping Use: Never Used Second Hand Smoke Exposure: Yes service: No Current occupational status: employed 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 Aaron Wiseman, Marisel Anderson, Jose Manuel Rodríguez and colleagues, with an educational ting from [employer]. Review of Systems ENT Reports sore throat (when she goes to the house and it is worse at night) Card Denies chest pain, Denies leg edema, Denies lightheadedness and Reports dyspnea (when she goes to her house that is polluted with chemicals) Resp Denies cough, Denies hemoptysis, Reports dyspnea (when she goes to her house that is polluted with chemicals) and Reports other (chest feels heavy when she goes to the house) GI Denies abdominal pain, Denies melena, Denies constipation, Denies diarrhea and Denies vomiting Neuro Denies Abnormal speech present Psych Reports anxiety and Reports depression Physical exam (Primary Care) Vital Signs: Last Vital Signs Temp 97.5 F 09/01/24 11:15 Pulse 66 09/01/24 11:15 BP 120/72 09/01/24 11:15 Pulse Ox 99 09/01/24 11:15 Oxygen Delivery Method Room Air 09/01/24 11:15 BMI result Body Mass Index 20.8 Tobacco/Smoking Status: Tobacco use Status Tobacco use date assessed 09/01/24 09/01/24 11:19 Patient Tobacco Use Status Former Tobacco user 09/01/24 11:19 Tobacco use type Cigarette 09/01/24 11:19 e-Cigarette/Vaping Use Never Used 09/01/24 11:19 Thrive Assessment: Date of Thrive Assessment Date Thrive assessed 07/18/24 09/01/24 11:19 Const General: healthy appearing, no acute distress, alert and awake Nutritional Appearance: well nourished Orientation/consciousness: oriented to person, oriented to place and oriented to time HENMT Ears: TM's normal bilaterally General nose exam: Abnormal mucous membranes and turbinates present (worse on the left side) boggy and erythematous Throat: Yes posterior oropharynx normal Eyes General: appearance normal, both eyes and all related structures Conjunctivae: conjunctivae normal Sclerae: sclerae normal Pupils: Equal, round and reactive pupils present Neck Neck: Yes no lymphadenopathy and Yes no JVD Thyroid: Thyroid normal Carotids: no bruits Resp Effort & Inspection: normal respiratory effort and not tachypneic Auscultation: no crackles, no rales, no rhonchi and no wheezes Cardio Rate: regular rate Rhythm: regular rhythm Heart sounds: no murmurs and normal S1 and S2 GI Palpation (GI): Soft to palpation, nontender, no hepatomegaly and no splenomegaly Auscultation: normal bowel sounds Skin General skin exam: no rashes or lesions noted and dry skin Neuro General: oriented to person, oriented to place and oriented to time Cranial nerves: Yes Equal, round and reactive pupils present Speech: No Abnormal speech present Gait exam (Neuro): Normal gait present Motor exam (neuro): no tremor noted Extrem Right upper extremity: full ROM Left upper extremity: full ROM Right lower extremity: full ROM; no edema Left lower extremity: full ROM; no edema Psych Mental Status: mental status grossly normal Speech and movement: Normal speech and movement present Affect: normal affect Attitude: cooperative Thought process: Normal thought process present Coding Level of Care Code Est Pt Level 4 (64087) Diagnoses Allergic rhinitis, unspecified seasonality, unspecified trigger J30.9 Allergic rhinitis trigger: unspecified Allergic rhinitis seasonality: unspecified SOB (shortness of breath) R06.02 Time Spent (min) 48 Assessment & Plan Assessment & Plan (1) Allergic rhinitis: Code(s): J30.9 - Allergic rhinitis, unspecified Category: Medical Qualifiers: Allergic rhinitis trigger: unspecified Allergic rhinitis seasonality: unspecified Qualified Code(s): J30.9 - Allergic rhinitis, unspecified Plan: The patient has ongoing nasal congestion. The patient reports that she has been having sore throat. Her throat was normal appearing. Discussed with patient that she might have been having post nasal drip. The patient has an order for Flonase nasal spray; reports that she used to take flunisolide 2 sprays intranasal and this worked better for her. Flunisolide 2 sprays intranasal BID-discussed with the patient that I am not going discontinue the flonase in case she does not get this medication Resume using zyrtec 10 mg daily PRN (2) SOB (shortness of breath): Code(s): R06.02 - Shortness of breath Category: Medical Plan: Reports that she only get short of breath when she goes to her house where it is chemically polluted. Discussed with the patient that she should have someone else clean her house to avoid these fumes. Discussed with the patient about see ing a alumni coordinator and she said to hold off on this thought for now. Even though, she is concern about developing lung CA from all the chemicals in her house. Medications: New flunisolide 2 sprays intranasal BID 25 mL 0RF J30.9 - Allergic rhinitis, unspecified
[2024-09-01 11:15] VITALS: BP 120/72; PULSE 66; TEMP 36.4; O2SAT 99; BMI 20.8
== END 2024-09-01 12:37 | disposition home or self-care (01) ==
LOC: HO.HMCH 11:04
PROVIDERS: PCP Internal Medicine
DX: J30.9 Allergic rhinitis, unspecified (principal); R06.02 Shortness of breath

== ENCOUNTER → 2024-09-01 11:03 | Outpatient (BNVA) | payer OTHER, SELFPAY | PROVIDERS: PCP Internal Medicine | DX: J30.9 Allergic rhinitis, unspecified (principal); R06.02 Shortness of breath | CPT/HCPCS: 99212 ==

== ENCOUNTER 2025-01-15 11:09 | Outpatient (AMB) | payer OTHER, SELFPAY ==
[2025-01-15 11:10] VITALS: BP 110/62; PULSE 66; O2SAT 96; BMI 21.5
--- NOTE | 2025-01-15 11:10 | A.OFFPC_ITS ---
Vital Signs 01/15/25 11:10 Height 5 ft 4 in Weight 125 lb 8 oz BMI 21.5 BP 110/62 Blood Pressure Location Lt brachial Position Sitting Pulse 66 Pulse Source Pulse Oximeter Pulse Oximetry (%) 96 Oxygen Delivery Method Room Air Intake Visit Reasons: pe Hat Presser Required: No Accompanied by: Self / Same As Patient Allergies bupropion Allergy (Intermediate, Verified 01/15/25 11:34) pruritic rash penicillin V Allergy (Unknown, Verified 01/15/25 11:11) Hives Sulfa (Sulfonamide Antibiotics) Allergy (Unknown, Verified 01/15/25 11:11) Hives Medication List - Last Reconciled 01/15/25 by Michael Webster MD acyclovir 500 mg PO BID atenolol 37.5 mg (1.5 x 25 mg) PO DAILY 90 days cetirizine (Zyrtec) 10 mg PO DAILY PRN flunisolide 2 sprays intranasal BID PRN fluticasone propionate 50 mcg/actuation (Flonase Allergy Relief) 1 spray intranasal DAILY levothyroxine 75 mcg PO DAILY 90 days mv,Ca,xea-DB-appjmr no.157 400 mcg 1 tab PO DAILY sertraline 25 mg PO DAILY Tobacco use date assessed: 01/15/25 Dental Screening Dental Screen Date: 01/15/25 Did you have a dental visit in the last 12 months?: Yes Did you have a dental problem in the last 6 months where you did not have access to dental care?: No Was dental information given to patient?: Patient has dentist HPI pe HPI Details Patient comes in today for her annual physical examination States that she feels okay She denies any headaches or dizziness Denies any chest pains, no SOB No nausea/vomiting, no abdominal pain No change in bowel habits noted She denies any acute urinary symptoms She had a normal BMD done back in 01/2023 Her yearly pap smear/gynecology exam was last done at [facility] a couple of months ago, per patient Her screening colonoscopy was last done in 2018 (Dr. Martin at [facility] [place]) - was recommended to have repeat colonoscopy done in 10 years (2028) Her mammogram was last done at [facility] on 08/19/2020 [facility] Medical History Migraine Allergic rhinitis Pure hypercholesterolemia Anxiety Vitamin D deficiency Mitral valve prolapse Dyslipidemia Menopause Vitiligo Acquired hypothyroidism Surgical History History of colonoscopy (~02/26/19) H/O knee surgery Family History Mother Osteoporosis High blood pressure Father Heart problem Depression Other Mental health problem Substance abuse Social History Housing: House Alcohol intake: current Alcohol intake frequency: a few times a month Patient Tobacco Use Status: Former Tobacco user Tobacco use type: Cigarette e-Cigarette/Vaping Use: Never Used Second Hand Smoke Exposure: Yes service: No Current occupational status: employed 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 1. Little interest or pleasure in doing things: not at all 2. Feeling down, depressed, or hopeless: not at all 3. Trouble falling or staying asleep, or sleeping too much: not at all 4. Feeling tired or having little energy: several days 5. Poor appetite or overeating: not at all 6. Feeling bad about yourself - or that you are a failure or have let yourself or your family down: not at all 7. Trouble concentrating on things, such as reading the newspaper or watching television: not at all 8. Moving or speaking so slowly that other people could have noticed. Or the opposite - being so fidgety or restless that you have been moving around a lot more than usual: not at all 9. Thoughts that you would be better off or of hurting yourself in some way: not at all Total score: 1 Depression Screening Interpretation: Negative Depression Screening Done: Yes 66615 - PHQ-9 Billing: Yes Source: Developed by Drs. Aaron Wiseman, Marisel Anderson, Jose Manuel Rodríguez and colleagues, with an educational ting from [employer]. Thrive Questionnaire Date Thrive assessed: 01/15/25 I am a: Patient What is your living situation today?: I have a steady place to live Within the past 12 months, did the food you bought not last and you didn't have the money to get more?: Never true Within the past 12 months, did you worry whether your food would run out before you got money to buy more?: Never true Do you have trouble paying for medicines?: No Do you have trouble getting transportation to medical appointments?: No Do you have trouble paying your heating and electricity bill?: No Do you have trouble taking care of your child, family member or friend?: No Do you have trouble with day-to-day activities such as bathing, preparing meals, shopping, managing finances, etc.?: No Are you currently unemployed and looking for a job?: I choose not to answer this question Are you interested in more education?: Yes Please select the resources that you would like help with: Education Currently or been in a relationship where the following occur: I choose not to answer THRIVE Score: 0 AUDIT C Alcohol Use Questionnaire (AUDIT-C) 1. How often do you have a drink containing alcohol?: 2-4 times a month 2. How many drinks containing alcohol do you have on a typical day when you are drinking?: 1 or 2 3. How often do you have six or more drinks on one occasion?: Never Total Score: 2 Score Reviewed/Action Taken: Yes RON-7 AMB Questionnaire RON-7 Date RON - 7 assessed: 01/15/25 Feeling nervous, anxious, or on edge: 1 = Several days Not being able to stop or control worryin = Not at all Worrying too much about different things: 0 = Not at all Trouble relaxin = Not at all Being so restless that it is hard to sit still: 0 = Not at all Becoming easily annoyed or irritable: 0 = Not at all Feeling afraid as if something awful might happen: 0 = Not at all Total RON-7 score (0-4 normal; 5-9 mild; 10-14 moderate; 15-21 severe): 1 Source: Developed by Drs. Aaron Wiseman, Marisel Anderson, Jose Manuel Rodríguez and colleagues, with an educational ting from [employer]. Review of Systems Const Denies chills, Denies fatigue, Denies fever(s), Denies headache(s) and Denies malaise Eyes Denies blurry vision, Denies change in vision, Denies irritation and Denies itchy eyes ENT Denies dysphagia, Denies dizziness, Denies otalgia, Denies headache(s), Denies nasal congestion, Denies neck pain, Denies odynophagia, Denies sinus pain and Denies sore throat Card Denies chest pain, Denies rapid heart rate, Denies irregular heart rhythm, Denies palpitations and Denies dyspnea Resp Denies chest congestion, Denies cough, Denies dyspnea and Denies wheezing GI Denies abdominal pain, Denies bloating, Denies constipation, Denies dysphagia, Denies heartburn, Denies diarrhea, Denies nausea, Denies odynophagia and Denies vomiting Denies hematuria, Denies difficulty voiding, Denies dysuria, Denies urinary incontinence and Denies urinary urgency Musc Denies back pain, Denies arthralgias, Denies joint swelling, Denies muscle weakness and Denies neck pain Skin/Breast Denies breast pain, Denies breast mass, Denies change in pigmentation, Denies lesions, Denies rash and Denies unusual bruising Neuro Denies dizziness, Denies headache(s) and Denies paresthesias Psych Reports anxiety and Denies depression Endo Denies fatigue and Denies palpitations Usama/Lymph Denies easy bruising Aller/Immun Denies itchy eyes and Denies wheezing Physical exam (Primary Care) Vital Signs: Last Vital Signs Pulse 66 01/15/25 11:10 BP 110/62 01/15/25 11:10 Pulse Ox 96 01/15/25 11:10 Oxygen Delivery Method Room Air 01/15/25 11:10 BMI result Body Mass Index 21.5 Tobacco/Smoking Status: Tobacco use Status Tobacco use date assessed 01/15/25 01/15/25 11:15 Patient Tobacco Use Status Former Tobacco user 01/15/25 11:15 Tobacco use type Cigarette 01/15/25 11:15 e-Cigarette/Vaping Use Never Used 01/15/25 11:15 PHQ-9: PHQ-9 Score PHQ-9: Total score 1 01/15/25 11:15 Depression Screening Interpretation: Negative Thrive Assessment: Date of Thrive Assessment Date Thrive assessed 01/15/25 01/15/25 11:15 Currently or been in a relationship where the following occur: I choose not to answer Const General: no acute distress, alert and awake Orientation/consciousness: patient oriented x3 HENMT Head: Yes normocephalic and Yes atraumatic Ears: external ears normal, TM's normal bilaterally and EAC's normal General nose exam: No nasal discharge present Face and sinus: Yes normal facial exam and Yes sinuses nontender Teeth and gingiva: dentition normal Throat: Yes posterior oropharynx normal and Yes tonsils normal (no TP congestion) Eyes Eyelids: Yes eyelids normal Conjunctivae: conjunctivae normal Pupils: Equal, round and reactive pupils present EOM: EOMs intact bilaterally Neck Neck: Yes no lymphadenopathy and Yes supple Thyroid: Thyroid normal Resp Auscultation: clear to auscultation bilaterally, no rales and no wheezes Cardio Rate: regular rate Rhythm: regular rhythm Heart sounds: no murmurs GI Palpation (GI): Soft to palpation, nontender and No hepatosplenomegaly present Auscultation: normal bowel sounds General: Yes no CVA tenderness Back/Spine/Pelvis Back: no CVA tenderness Thoracic/Lumbar Spine: thoracic and lumbar spine normal to inspection Skin Lesions: no lesions Rashes: no rashes Neuro General: patient oriented x3, moves all extremities, no focal motor deficits and CN's II-XI intact bilaterally Cranial nerves: Yes Equal, round and reactive pupils present Cognition (Neuro): normal cognition Gait exam (Neuro): Normal gait present Extrem General: Yes no clubbing, cyanosis or edema Coding Level of Care Code Est Pt Prev Care 40-64y(08012) Diagnoses Annual physical exam Z00.00 Mitral valve prolapse I34.1 Acquired hypothyroidism E03.9 Pure hypercholesterolemia E78.00 Migraine without aura and without status migrainosus, not intractable G43.009 Migraine type: migraine (< 15 days per month) without aura Status migrainosus presence: without status migrainosus Intractability: not intractable Allergic rhinitis, unspecified seasonality, unspecified trigger J30.9 Allergic rhinitis trigger: unspecified Allergic rhinitis seasonality: unspecified Anxiety F41.9 Breast cancer screening by mammogram Z12.31 Additional Codes PHQ-9 - 64363 - PHQ-9 Billing: Yes ([id number]) Assessment & Plan Assessment & Plan (1) Annual physical exam: Code(s): Z00.00 - Encounter for general adult medical examination without abnormal findings Category: Medical Plan: Check labs Her yearly pap smear/gynecology exam was last done at [facility] a couple of months ago, per patient Her screening colonoscopy was last done in 2018 (Dr. Martin at [facility] [place]) - was recommended to have repeat colonoscopy done in 10 years (2028) Her mammogram was last done at [facility] on 08/19/2020 so she is overdue for her breast cancer screening She had a normal BMD done back in 01/2023 (2) Mitral valve prolapse: Comment: Repeat echocardiogram done on 02/22/2018 showed (+) mild prolapse of the posterior leaflet with mild regurgitation, normal LV systolic and diastolic function, normal right ventricular systolic pressure, and normal pericardial structure (previous echocardiogram was done in 2013) - recommend repeat echocardiogram in 1 to 2 years Code(s): I34.1 - Nonrheumatic mitral (valve) prolapse Category: Medical Plan: Previous echocardiogram findings in 2018 noted as above; she also has mild MR and trace TR on her echo done in 2018 Patient had a stress echocardiogram done on 04/03/2018 that was negative with no ECG evidence of ischemia and no echocardiographic evidence for myocardial ischemia. She had a brief episode of atrial fibrillation in recovery. Repeat echocardiogram done in October 2022 came out normal - the left ventricular systolic function is normal and?the calculated ejection fraction is 67% by biplane method. There is also mild MR but no other obvious valvular pathology is seen on this study Continue Atenolol 37.5 mg (25 mg x 1.5 tablets) QD - she has been taking this for years, presumably for symptoms of some palpitations in the past related to her MVP although she did mention that taking Atenolol also seems to help with her anxiety symptoms when needed Per her request, will send her for repeat echocardiogram to at least confirm her last echocardiogram findings - advised that if her repeat echo again shows NO evidence of MVP, then she does not really need to continue doing follow up echocardiograms in the future (3) Acquired hypothyroidism: Code(s): E03.9 - Hypothyroidism, unspecified Category: Medical Plan: Continue Levothyroxine 75 mcg QD Will recheck her TFTs for follow up (4) Pure hypercholesterolemia: Code(s): E78.00 - Pure hypercholesterolemia, unspecified Category: Medical Plan: Reinforced low-cholesterol diet Will recheck her fasting lipids for follow up (5) Migraine: Code(s): G43.909 - Migraine, unspecified, not intractable, without status migrainosus Category: Medical Qualifiers: Migraine type: migraine (< 15 days per month) without aura Status migrainosus presence: without status migrainosus Intractability: not intractable Qualified Code(s): G43.009 - Migraine without aura, not intractable, without status migrainosus Plan: Patient states that her migraine headaches have been stable/controlled lately Reinforced avoidance of all potential migraine triggers Continue Sumatriptan 50 mg PRN Follow up with neurology as scheduled or as needed - she was last seen by neurology (Dr. Salinas) on 01/19/2023 (6) Allergic rhinitis: Code(s): J30.9 - Allergic rhinitis, unspecified Category: Medical Qualifiers: Allergic rhinitis trigger: unspecified Allergic rhinitis seasonality: unspecified Qualified Code(s): J30.9 - Allergic rhinitis, unspecified Plan: Continue Cetirizine 10 mg QD PRN and Fluticasone 50 mcg nasal spray QD PRN (7) Anxiety: Code(s): F41.9 - Anxiety disorder, unspecified Category: Medical Plan: Continue Sertraline 25 mg QD - states that she is now working on trying to wean herself off her Sertraline if possible States that all of her previous dermatologic complaints and symptoms have resolved since she came off her Bupropion SR a few months ago Follow up with psychiatry as scheduled (8) Breast cancer screening by mammogram: Code(s): Z12.31 - Encounter for screening mammogram for malignant neoplasm of breast Category: Medical Plan: She is overdue for her annual mammography and will send her to get this updated TADEO Plan Follow up in 6 months Orders: Orders Comprehensive [place]. Panel Fast Today E78.00 - Pure hypercholesterolemia, unspecified, Z00.00 - Encounter for general adult medical examination without abnormal findings Thyroid Stimulating Hormone Today E03.9 - Hypothyroidism, unspecified, Z00.00 - Encounter for general adult medical examination without abnormal findings Hemoglobin A1c Today R73.9 - Hyperglycemia, unspecified, Z00.00 - Encounter for general adult medical examination without abnormal findings MM tomosynthesis screening BI Today Z12.31 - Encounter for screening mammogram for malignant neoplasm of breast Complete Blood Count Auto Diff Today D64.9 - Anemia, unspecified, Z00.00 - Encounter for general adult medical examination without abnormal findings Lipid Panel Today E78.00 - Pure hypercholesterolemia, unspecified, Z00.00 - Encounter for general adult medical examination without abnormal findings Free T4 (Free Thyroxine) Today E03.9 - Hypothyroidism, unspecified, Z00.00 - Encounter for general adult medical examination without abnormal findings UA CC w/rflx Micro + Cult Today R30.0 - Dysuria, Z00.00 - Encounter for general adult medical examination without abnormal findings Vitamin D 25-OH Total Today E55.9 - Vitamin D deficiency, unspecified, Z00.00 - Encounter for general adult medical examination without abnormal findings CA echo transthoracic complete Today I34.1 - Nonrheumatic mitral (valve) prolapse Medications: Refilled levothyroxine 75 mcg PO DAILY 90 tabs 1RF 90 days E03.9 - Hypothyroidism, unspecified
== END 2025-01-15 12:20 | disposition home or self-care (01) ==
LOC: HO.HMCH 11:10
PROVIDERS: PCP Internal Medicine; Visit Provider Internal Medicine
DX: Z00.00 Encounter for general adult medical examination without abnormal findings (principal); I34.1 Nonrheumatic mitral (valve) prolapse; E03.9 Hypothyroidism, unspecified; E78.00 Pure hypercholesterolemia, unspecified; G43.009 Migraine without aura, not intractable, without status migrainosus; J30.9 Allergic rhinitis, unspecified; F41.9 Anxiety disorder, unspecified; Z12.31 Encounter for screening mammogram for malignant neoplasm of breast

== ENCOUNTER → 2025-01-15 11:09 | Outpatient (BNVA) | payer OTHER, SELFPAY | PROVIDERS: PCP Internal Medicine; Visit Provider Internal Medicine | DX: Z00.00 Encounter for general adult medical examination without abnormal findings (principal); I34.1 Nonrheumatic mitral (valve) prolapse; E03.9 Hypothyroidism, unspecified; E78.00 Pure hypercholesterolemia, unspecified; J30.9 Allergic rhinitis, unspecified; F41.9 Anxiety disorder, unspecified | CPT/HCPCS: 96127; 99396 ==

== ENCOUNTER 2025-01-19 09:00 | Outpatient (REF) | payer OTHER, SELFPAY ==
[2025-01-19 09:30] LABS: MANUAL DIFF FLAG NO
[2025-01-19 10:13] LABS: Hematocrit 41.1 % (37.0-47.0); Hemoglobin 13.9 g/dl (12.0-16.0); Imm Gran Abs Auto 0.01 X10*3/uL (0.00-0.03); Imm Gran Pct Auto 0.2 % (0.0-0.4); Lymphocytes Absolute Auto 1.4 X10*3/uL (1.2-4.9); Mean Corpuscular HGB Conc 33.8 g/dl (31.0-35.0); Mean Corpuscular Hemoglobin 32.4 pg (27.0-33.0); Mean Corpuscular Volume 95.8 fL (80.0-98.0); NRBC Abs Auto 0.000 X10*3/uL (0.0-0.012); NRBC Pct Auto 0.0 /100WBC (0.0-0.2); Platelet Count 237 X10*3/uL (160-400); Red Blood Count 4.29 X10*6/uL (4.20-5.50); White Blood Count 4.5 X10*3/uL (4.8-10.8)
[2025-01-19 10:22] LABS: Appearance Urine Clear; Glucose Urine UA Negative (Negative); PH 7.0 (5.0-9.0); Specific Gravity - Urine 1.015 (1.005-1.025); UMIC TRIGGER UACC YES
[2025-01-19 10:41] LABS: Hemoglobin A1C 135.5079 umol/L; Total Hemoglobin (HGBA1C) 3714.4649 umol/L
[2025-01-19 10:43] LABS: UACC Culture Trigger YES
[2025-01-19 10:49] LABS: Alanine Aminotransferase 35 U/L (0-31); Albumin Level 4.8 g/dL (3.5-5.0); Alkaline Phosphatase 63 U/L (39-117); Anion Gap 12 (12-20); Aspartate Amino Transferase 34 U/L (5-31); Blood Urea Nitrogen 20 mg/dL (9-16); Calcium 9.7 mg/dL (8.4-10.2); Carbon Dioxide 29 mmol/L (22-29); Chloride 105 mmol/L (96-108); Cholesterol 219 mg/dL (<200); Estimated Glomerular Filt Rate 58; HDL Cholesterol 82 mg/dL (>40); Potassium 4.0 mmol/L (3.3-5.1); Sodium 142 mmol/L (135-145); Total Protein 7.4 g/dL (6.5-8.0); Triglycerides 70 mg/dL (<150)
[2025-01-19 10:59] LABS: Free T4 (Free Thyroxine) 0.81 ng/dL (0.71-1.85); Thyroid Stimulating Hormone 5.49 uIU/mL (0.32-4.0)
== END 2025-01-19 09:01 | disposition home or self-care (01) ==
LOC: HO.LAB 09:00
PROVIDERS: PCP Internal Medicine; Visit Provider Internal Medicine
DX: Z00.00 Encounter for general adult medical examination without abnormal findings (principal); E55.9 Vitamin D deficiency, unspecified; E78.00 Pure hypercholesterolemia, unspecified; E03.9 Hypothyroidism, unspecified; D64.9 Anemia, unspecified; R73.9 Hyperglycemia, unspecified; R30.0 Dysuria
CPT/HCPCS: 36415; 80053; 80061; 81001; 82306; 83036; 84439; 84443; 85025; 87086

== ENCOUNTER 2025-02-06 15:06 | Outpatient (REF) | payer OTHER, SELFPAY ==
[2025-02-06 17:00] LABS: Appearance Urine Clear; Glucose Urine UA Negative (Negative); PH 7.5 (5.0-9.0); Specific Gravity - Urine <= 1.005 (1.005-1.025); UMIC TRIGGER UACC YES
[2025-02-06 17:06] LABS: UACC Culture Trigger YES
== END 2025-02-06 15:07 | disposition home or self-care (01) ==
LOC: HO.HMGCLDS 15:06
PROVIDERS: PCP Internal Medicine; Visit Provider Internal Medicine
DX: R39.9 Unspecified symptoms and signs involving the genitourinary system (principal)
CPT/HCPCS: 81001; 81003; 87086

== ENCOUNTER → 2025-03-04 14:09 | Outpatient (REF) | payer OTHER, SELFPAY ==
--- NOTE | 2025-03-04 14:13 | CA_ITS ---
Transthoracic Echocardiogram Patient (Last, First, Middle): Bobbi Camara A Gender: Female Date of : 1960 Age: 65 Procedure Date: 03/04/2025 Procedure Type: Transthoracic Echocardiogram Location: OP Height: 162.56 cm Weight: 56.7 kg BSA: 1.60 m2 Heart Rate: bpm BP: 110 / 62 mmHg Lead Caster Helper: INES Referring MD: Michael Webster MD Symptoms: I34.1 - Nonrheumatic mitral (valve) prolapse Study Quality: Adequate Conclusions: - The left ventricular systolic function is normal. The calculated ejection fraction is 64% by biplane method. - There is mild posterior mitral leaflet prolapse. There is mild mitral valve regurgitation. Findings Left Ventricle Normal left ventricular cavity size. There is normal left ventricular wall thickness. The left ventricular systolic function is normal. The calculated ejection fraction is 64% by biplane method. There is no evidence of regional wall motion abnormalities. Right Ventricle Normal right ventricular cavity size and systolic function. Atria Both atria are normal in size. Aortic Valve There is a normal trileaflet aortic valve. There is no aortic valve stenosis. There is no aortic valve regurgitation. Mitral Valve There is mild posterior mitral leaflet prolapse. There is mild mitral valve regurgitation. There is no mitral valve stenosis. Pulmonic Valve There is trace pulmonic valve regurgitation. Tricuspid Valve There is trace tricuspid valve regurgitation. There is no evidence of pulmonary hypertension. Great Vessels The asc aorta is normal in size. Venous The inferior vena cava is normal in size and collapses greater than 50% with inspiration. Pericardium/Pleural There is no evidence of pericardial effusion. Prior Study Comparison Changes noted compared to prior study dated: 11/06/2022. Mitral valve better visualized. Measurements 2D Linear Measurements IVSd: 0.76 0.6-0.9/0.6-1.0 cm LVIDd: 4.20 3.9-5.3/4.2-5.9 cm LVIDd Index: 2.63 2.4-3.2/2.2-3.1 cm/m2 LVIDs: 2.78 2.0-3.6 cm LVPWd: 0.89 0.7-1.1 cm LA Diam: 3.00 2.7-3.8/3.0-4.0 cm LAIDs Index: 1.88 1.5-2.3 cm/m2 LV Mass: 130.94 67-162/88-224 g LV Mass Index: 81.84 43-95/49-115 g/m2 LVOT Diam: 2.00 3.0+(-)1.3 cm 2D Systolic Function EF 4C: 63.40 >55% EF 2C: 66.60 >55% EF BiP: 64.30 >55% Mitral Valve MV Pk E: 0.79 MV PK A: 0.55 MV Decel Time: 194.00 E/A: 1.40 E'Lateral: 9.25 E'Medial: 8.05 E/E' Med: 9.80 E/E' Lat: 8.50 PHT: 57.00 MVA PHT: 3.86 Decel Zavala: 4.07 Aortic Valve AoV Pk Jay: 1.24 AoV Mn Jay: 0.89 AoV VTI: 0.29 AoV Pk Grad: 6.00 Aov Mn Grad: 3.00 ALVIN Cont.VTI: 2.62 LVOT LVOT Pk Jay: 0.98 LVOT Mn Jay: 0.70 LVOT VTI: 0.24 LVOT Pk Grad: 4.00 LVOT Mn Grad: 2.00 LVOT Diam: 2.00 LVOT Area: 3.14 Diastolic Function MV Pk E: 0.79 MV Pk A: 0.55 E/A: 1.40 E'Medial: 8.05 E/E' Med: 9.80 E' Laterial: 9.25 E/E' Lat: 8.50 Right Ventricle TAPSE (mm): 23.60 TVS' Jay: 12.00 Tricuspid Valve TR Pk Jay: 2.10 TR Pk Grad: 18.00 RA Press: 3.00 RVSP: 21.00 Great Vessels Aorta Sinus of Valsalva: 3.26 2.0-3.[address] Ridge: 2.70 1.7-3.4 cm Ao Asc: 3.20 2.1-3.4 cm Updated in Other Vendor System with Status of Final Beau Warner MD electronically signed on 03/06/2025 10:49:11 AM with status of Final
== END ==
LOC: HO.CARD 14:09
PROVIDERS: PCP Internal Medicine; Visit Provider Internal Medicine
DX: I34.1 Nonrheumatic mitral (valve) prolapse (principal)
CPT/HCPCS: 93306

== ENCOUNTER → 2025-03-04 14:13 | Outpatient (BNV) | payer OTHER, SELFPAY | PROVIDERS: PCP Internal Medicine; Visit Provider Internal Medicine | DX: I34.1 Nonrheumatic mitral (valve) prolapse (principal) | CPT/HCPCS: 93306 ==

== ENCOUNTER 2025-04-15 14:53 | Outpatient (REF) | payer OTHER, SELFPAY | END 2025-04-15 14:54 | disposition home or self-care (01) | LOC: HO.MAMMO 14:53 | PROVIDERS: PCP Internal Medicine; Visit Provider Internal Medicine | DX: Z12.31 Encounter for screening mammogram for malignant neoplasm of breast (principal) | CPT/HCPCS: 77063; 77067 ==

== ENCOUNTER → 2025-04-15 15:00 | Outpatient (BNV) | payer OTHER, SELFPAY | PROVIDERS: PCP Internal Medicine; Visit Provider Internal Medicine | DX: Z12.31 Encounter for screening mammogram for malignant neoplasm of breast (principal) | CPT/HCPCS: 77063; 77067 ==